=== PATIENT | female | born 1995 | race Caucasian/White ===

== ENCOUNTER 2024-09-09 21:35 | Inpatient (IN) ==
[2024-09-09] MEDS ORDERED: ACETAMINOPHEN 500 MG TAB PO PRN (22:29)
[2024-09-09] MEDS ORDERED: LIDOCAINE 1% LOCAL 20 ML VIAL INFIL PRN (22:29)
[2024-09-09] MEDS ORDERED: CALCIUM CARBONATE 500 MG CHEWABLE TAB PO PRN (22:29)
[2024-09-09 23:02] LABS: Hematocrit (blood only) 36.8 % (37.0-47.0); Hemoglobin 12.4 g/dl (12.0-16.0); Mean Corpuscular Hgb Conc 33.7 g/dL (32.0-36.0); Mean Corpuscular Volume 86.2 fL (80.0-100.0); Mean Platelet Volume 13.6 fL (9.4-12.4); Platelet Count 167 K/uL (130-400); RDW Coefficient of Variation 13.8 % (11.5-14.5); RDW Standard Deviation 43.4 fL (36.4-46.3); Red Blood Count 4.27 M/uL (4.20-5.40); White Blood Count 10.28 K/ul (4.8-10.8)
[2024-09-09] MEDS: LACTATED RINGER'S 1,000 ML IV PRN (23:09)
--- NOTE | 2024-09-09 23:32 | History & Physical Report ---
Date of Service September 09, 2024 History of Present Illness Chief Complaint: brigitte collins Primary Care Provider: NO PCP 29 F P0000 at 39 nweeks with SROM this evening around 8 PM clear fluid with irregular contractions. GBS is negative. course has been uncomplicated. Patient History Social History Smoking Status: Former smoker Tobacco Type: Cigarettes and E-cigarettes / Vaping Second Hand Exposure: No; Do You Dip or Chew Tobacco: No; Tobacco Cessation Education Requested by Patient: No Hx Alcohol Use: No Hx Substance Use: No Preferred Language: Azeri Communication Ability: Effective Commercial Loan Processor Required: No Beliefs That Will Affect Care: None marital status: Single Current Living Situation: Family and Significant Other Current Living Situation Comment: FOB and step children Other Information That Helps Us Care for You: No Feels Safe at Home: Yes Safety Concerns: Feels Safe At This Time Assistive Devices: Contacts and Glasses 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 Physical Exam Constitutional: WD/WN, vitals as above Eyes: PERRL, conjunctivae normal, anicteric sclerae Respiratory: normal respiratory effort, lungs clear to auscultation Cardiovascular: Rate/Rhythm: regular rate and regular rhythm Gastrointestinal (Abdomen): Inspection/Auscultation: abdomen normal to inspection Musculoskeletal: Extremities: extremities normal to inspection Skin: no rashes, warm and dry Neurologic: patellar DTR's 2+ bilat, sensation intact Psychiatric: A+Ox3, euthymic affect Genitourinary: Manual OB Exam: + cervical dilation 4 cm, + cervical effacement 80%, + station -2 and + amniotic fluid clear OB Exam Monitor Tracing: + external FHT monitor used, + external uterine monitor used, + category I and + normal FHT variability Results & Data Vital Signs (Past 12 Hours) Vital Signs Temp Pulse Resp BP Pulse Ox 09/09/24 23:24 82 100 09/09/24 23:19 79 98 09/09/24 22:40 36.6 C 18 09/09/24 22:06 76 126/77
[2024-09-09] MEDS: Patient's ALLERGY Info needs ENTERED STA (23:54)
--- NOTE | 2024-09-09 23:58 | Anesthesiology Consultation ---
Date of Service September 09, 2024 Assessment & Plan (1) Encounter for pre-operative examination: Chart Review Chart Review: Acceptable Risk for Labor Epidural History Height/Weight Height: 5 ft 4 in Weight: 90.718 kg Allergies Allergy/AdvReac Type Severity Reaction Status Date / Time No Known Drug Allergies Allergy None Verified 09/09/24 23:45 Medications Active Medications Generic Name Dose Route Start Last Admin Trade Name Freq PRN Reason Stop Dose Admin Lactated Ringer's 1,000 mls @ 125 mls/hr 09/09/24 22:29 09/09/24 23:09 Lr IV 09/11/24 22:28 999 mls/hr .Q8H PRN Administration L&D Protocol Protocol Past Medical History Medical History (Updated 09/09/24 @ 23:58 by Jacky Louis MD) No pertinent past medical history Past Surgical History Surgical History (Updated 09/09/24 @ 23:58 by Jacky Louis MD) No pertinent past surgical history Social History Smoking Status: Former smoker Do You Dip or Chew Tobacco: No Hx Alcohol Use: No Hx Substance Use: No substance use type: does not use Physical Exam Vital Signs Last Vital Signs Temp 36.6 C 09/09/24 22:40 Pulse 91 H 09/09/24 23:34 Resp 18 09/09/24 22:40 BP 126/77 09/09/24 22:06 Pulse Ox 99 09/09/24 23:34 Testing Laboratory Results 09/09/24 22:33
[2024-09-10] MEDS: fentANYL 2 MCG/ML BUPIVacaine 0.125%-NSS 100ML BAG ONE (00:23)
[2024-09-10] MEDS ORDERED: fentaNYL citrate PF 100 MCG/2 ML VIAL EPI PRN (00:25)
[2024-09-10] MEDS ORDERED: ROPIVACAINE 0.5% PF 5 MG/ML 20 ML VIAL EPI PRN (00:25)
[2024-09-10] MEDS ORDERED: ePHEDrine sulfate 50 MG/ML AMP IV PRN (00:25)
[2024-09-10] MEDS ORDERED: NALOXONE HCL 1 MG in SODIUM CHLORIDE 0.9% 1,000 ML IV PRN (00:25)
[2024-09-10] MEDS ORDERED: BUPIVACAINE 0.25% PF 30 ML VIAL EPI PRN (00:25)
[2024-09-10] MEDS ORDERED: SODIUM CHLORIDE 0.9% PF INJ 10 ML VIAL EPI PRN (00:25)
[2024-09-10] MEDS ORDERED: NALOXONE HCL 0.4 MG/1 ML VIAL/CARP IV PRN (00:25)
[2024-09-10] MEDS ORDERED: LIDOCAINE 2% MPF LOCAL 5 ML VIAL EPI PRN (00:25)
[2024-09-10] MEDS: LIDOCAINE 2%/EPINEPHRINE 1:200,000 20 ML PF ONE (00:26)
[2024-09-10] MEDS: BUPIVACAINE 0.25% PF 30 ML VIAL ONE (00:26)
[2024-09-10] MEDS: SODIUM CHLORIDE 0.9% PF INJ 10 ML VIAL ONE (00:26)
[2024-09-10] MEDS: fentaNYL citrate PF 100 MCG/2 ML VIAL ONE (00:28)
--- OUTSIDE RECORDS SUMMARY | 2024-09-10 04:26 | External Medical Summary | Summary of Care ---
Author Name Unknown Organization [facility] Address [address] [facility] [place] [address] Phone [phone] Care Team Providers Care Stoker Erector And Servicer Name Role Phone Unavailable Primary Care Provider Unavailabl e Encounter Details Date Type Department Care Team (Late st Contact Info) Description 09/06/2024 Telephone Gynecology/Obstetrics [facility] [address] [place] [address] BackerReanna CRNP [address] [place] [address] Allergies No known active allergiesdocumented as of this encounter (statuses as of 09/09/2024) Medications Prena1 1.4 MG Oral Tablet Chewable Take by mouth. Active Breast PumpIndications :Breast feeding status of mother EVA 09/16/24, Z39.1. Double electric pump 1 Each 05/10/2024 Active documented as of this encounter (statuses as of 09/09/2024) Active Problems Problem Noted Date Diagnosed Date High grade squamous intraepi thelial lesion (HGSIL), grade 3 KANU, on biopsy of cervix 04/16/2024 Overview (04/16/2024): Needs LEEP Pap smear of cervix with ASCUS, cannot exclude H GSIL 03/11/2024 Overview (03/11/2024): At [facility] Supervision of normal first 03/01/2024 Ganglion 07/22/2008 Tobacco use disorder Estimated Date of Delivery Comme nts Yes 09/16/2024 Based on Ultraso und documented as of this encounter (statuses as of 09/09/2024) Resolved Problems Problem Noted Date Diagnosed Date Resolved Date Contraception 03/01/2024 documented as of this encounter (statuses as of 09/09/2024) Immunizations Name Administration Dates Next Due HPV Vaccine, 4-Valent 07/25/2007,03/27/2007,01/06 Meningococcal Conjugate Vacc ine (Menactra/Menveo) 01/23/2007 Seasonal Influenza Vac., MDV , IM, 0.5 mL (Fluzone) 03/05/2008 TDAP, Age 7 and older, IM (Adacel) 07/05/2024, Varicella Vaccine (Chicken Pox) 01/31/1995 documented as of this encounter Social History Tobacco Use Types Packs/Day Years Used Date Smoking Tobacco: Former Cigarettes 0.5 1 Smokeless Tobacco: Never Comments:vape Alcohol Use Standard Drinks/Week Comments Not Currently 0 (1 standard drink = 0.6 oz pur e alcohol) Hunger Vital Sign Answer Date Recorded Within the past 12 months, y ou worried that your food would run out before you got the money to buy more. Never true 04/26/20 24 Within the past 12 months, t he food you bought just didn't last and you didn't have money to get more. Never true 04/26/2024 [place] Depression Scale Answer Date Recorded [place] Depression Scale Total 0 07/26/2024 The thought of harming myself has occurred to me . Never 07/26/2024 Childcare Answer Date Recorded Do you feel overwhelmed with taking care of a child, family member or friend? No 04/26/2024 Does your family need help f inding childcare? (Household - for ages 0-17 years) Not on file 04/26/2024 Clothing Answer Date Recorded Have you been unable to get clothing when it was really needed? No 04/26/2024 Is your family able to get c lothes or diapers when needed? (Household - for ages 0-17 years) Not on file 04/26/2024 Personal Safety Answer Date Recorded Do you feel unsafe or have concerns for your saf ety? No 04/26/2024 Do you have concerns for you r family's safety? (Household - for ages 0-17 years) Not on file 04/26/2024 Utilities Answer Date Recorded Do you have trouble paying y our heating, water, or electric bill? No 04/26/2024 Is your family able to pay t he heat, water, or electric bill? (Household - for ages 0-17 years) Not on file 04/26/2024 Does your family have access to good internet? (Household - for ages 0-17 years) Not on file 04/26/2024 Employment Status Answer Date Recorded Are you unemployed or without regular income? No 04/26/2024 Does the household have a re gular source of income? (Household - for ages 0-17 years) Not on file 04/26/2024 Social Connections Answer Date Recorded How often do you feel lonely or isolated from th ose around you? Never 04/26/2024 Financial Resource Strain Answer Date R ecorded Do you have any trouble payi ng for your medications, or do you think you might in the future? No 04/26/2024 Does your family have troubl e paying for medicine? (Household - for ages 0-17 years) Not on file 04/26/2024 Transportation Needs Answer Date Record ed Do you have trouble getting a ride to medical visits or work? (Adult - for ages 18 years and over) Not on file 04/26/2024 Does your family have a hard time getting a ride to doctors visits? (Household - for ages 0-17 years) Not on file 04/26/2024 Has lack of transportation k ept you from medical appointments, meetings, work, or from getting things needed for daily living? Check all that apply. No 04/26/2024 Do you (or your family) have trouble finding or paying for a ride (transportation)? (Household - for ages 0-17 years) Not on file 04/26/2024 Housing Stability Answer Date Recorded Do you currently live in a s helter or have no steady place to sleep at night? No 04/26/2024 Do you think you are at risk of becoming homeless? (Adult - for ages 18 years and over) Not on file 04/26/2024 Does your family worry about paying for your home or becoming homeless? (Household - for ages 0-17 years) Not on file 1 06/27/2023 Are you homeless or worried that you might be in the future? No 04/26/2024 Are you (or your family) ashley eless or worried that you might be in the future? (Household - for ages 0-17 years) Not on file Food Insecurity Answer Date Recorded Do you need food for this week? No 04/26/2024 Are you able to get enough f ood for your family? (Household - for ages 0-17 years) Not on file 04/26/2024 Does your family need food t his week? (Household - for ages 0-17 years) Not on file 04/26/2024 Do you always have enough fo od for your family? (Household - for ages 0-17 years) Not on file 04/26/2024 Food Insecurity Answer Date Recorded Within the past 12 months, y ou worried that your food would run out before you got the money to buy more. Never true 04/26/20 24 Within the past 12 months, t he food you bought just didn't last and you didn't have money to get more. Never true 04/26/2024 Do you need food for this week? No 04/26/2024 Estimated Date of Delivery Comme nts Yes 09/16/2024 Based on Ultraso und Sex and Gender Information Value Date Recorded Sex Assigned at Female 02/08/2024 9:18 AM EDT Legal Sex Female 6:06 AM EST Gender Identity Female 02/08/2024 9:18 AM EDT Sexual Orientation Straight 02/08/2024 9: 18 AM EDT documented as of this encounter Miscellaneous Notes * Telephone Encounter - Olga Gibbs OSA - 09/09/2024 7:42 AM EDT Patient is scheduled for September 13 * Telephone Encounter - Sandy Ramos OSA - 09/06/2024 3:47 PM EDT Please assist with rescheduling 1 wk geovani. Thank you! documented in this encounter Plan of Treatment Upcoming Encounters Date Type Department Care Team (Late st Contact Info) Description 09/13/2024 8:15 AM EDT Office Visit Gynecology/Obstetrics [facility] [address] [place] [address] Reanna Osborne CRNP [address] [place] [address] 11/04/2024 12:30 PM EDT Office Visit Gynecology/Obstetrics [facility] [address] [place] [address] Octavio Jasso MD [address] [place] [address] Health Maintenance Due Date Last Done Comments Depression Screening 2005 Lipid Panel 2013 COVID-19 Vaccine ( season) 2024 Pap Smear 03/01/2027 03/01/2024 Cervical Cancer Screening 03/01/2029 HPV/Co-Test 03/01/2029 03/01/2024 DTap/Tdap Vaccines (10 - Td or Tdap) 07/05/2034 07/05/2024, 12/26/2009, 08/20/2004, Additional history exists Hepatitis B Vaccine Completed 10/18/1994, 1993, 1993 MENINGOCOCCAL (MENACTRA/MENVEO) Aged Out 01/23/2007 No longer eligible based on patient's age to complete this topic HPV (Gardasil) Vaccine Completed 8, 03/27/2007, 01/23/2007 Influenza Vaccine (FLU shot) Completed 01/23/2024, 03/05/2008 Meningitis B Vaccine (Bexsero/Trumemba) Aged Out No longer eligible based on patient's age to complete this topic Pneumococcal Vaccine: Pediatrics (0 to 5 Years) and At-Risk Patients (6 to 18 Years and 19+ Years) Aged Out No longer eligib le based on patient's age to complete this topic documented as of this encounter Medical Devices Not on filedocumented as of this encounter
--- OUTSIDE RECORDS SUMMARY | 2024-09-10 04:26 | External Medical Summary | Summary of Care ---
Author Name Unknown Organization [facility] Address [address] [facility] [place] [address] Phone [phone] Care Team Providers Care Color Artist Name Role Phone Unavailable Primary Care Provider Unavailabl e Reason for Visit * Reason Comments Return Visit Encounter Details Date Type Department Care Team (Latest Contact Info) Description 08/30/2024 10:15 AM EDT Office Visit Gynecology/Obstetri nasra Ding Mahajan [address] [place] [address] Debby Gant CRNP [address] [place] [address] Encounter for supervision of normal first in third trimester*; High grade squamous intraepithelial lesion (HGSIL), grade 3 KANU, on biopsy of cervix Allergies No known active allergiesdocumented as of this encounter (statuses as of 08/30/2024) Medications Prena1 1.4 MG Oral Tablet Chewable Take by mouth. Active Breast PumpIndications :Breast feeding status of mother EVA 09/16/24, Z39.1. Double electric pump 1 Each 05/10/2024 Active documented as of this encounter (statuses as of 08/30/2024) Active Problems Problem Noted Date Diagnosed Date [...] as of this encounter (statuses as of 08/30/2024) Resolved Problems Problem Noted Date Diagnosed Date Resolved Date Contraception 03/01/2024 documented as of this encounter (statuses as of 08/30/2024) Immunizations Name Administration Dates Next Due HPV [...] money to get more. Never true 04/26/2024 [place] Depression Scale Answer Date Recorded [place] Depression Scale Total 0 07/26/2024 The thought [...] AM EDT documented as of this encounter Last Filed Vital Signs Vital Sign Reading Time Taken Comments Blood Pressure 118/74 08/30/2024 10:04 AM EDT Pulse - - Temperature - - Respiratory Rate - - Oxygen Saturation - - Inhaled Oxygen Concentration - - Weight 90.6 kg (199 lb 12.8 oz) 025 10:04 AM EDT Height - - Body Mass Index 35.11 03/01/2024 9:22 AM EDT documented in this encounter Progress Notes * Debby Gant CRNP - 08/30/2024 10:18 AM EDT 37w4d No concerns. Occasional contractions, not progressing toward active labor. Good FM. No bleeding or LOF. BRITTNEE Spear * Melinda Tan CMA - 08/30/2024 10:04 AM EDT 37w4d Denies any concerns documented in this encounter Plan of Treatment Upcoming Encounters Date Type Department Care Team (Late st Contact Info) Description 09/06/2024 11:45 AM EDT Office Visit Gynecology/Obstetrics [facility] [address] [place] [address] Reanna Osborne CRNP [address] [place] [address] 11/04/2024 12:30 PM EDT Office Visit Gynecology/Obstetrics [facility] [address] [place] [address] Octavio Jasso MD [address] [place] [address] Health Maintenance Due Date Last Done Comments [...] complete this topic HPV (Gardasil) Vaccine Completed , 03/27/2007, 01/23/2007 Influenza Vaccine (FLU shot) Completed [...] Not on filedocumented as of this encounter Visit Diagnoses Diagnosis Encounter for supervision of normal first in third trimester- Primary Supervision of normal first High grade squamous intraepithelial lesion (HGSIL), grade 3 KANU, on biopsy of cervix documented in this encounter
--- OUTSIDE RECORDS SUMMARY | 2024-09-10 04:26 | External Medical Summary | Summary of Care ---
Author Name Unknown Organization [facility] Address [address] [facility] [place] [address] Phone [phone] Care Team Providers Care Fret Saw Operator Name Role Phone Unavailable Primary Care Provider Unavailabl e Reason for Visit * Reason Comments Return Visit Encounter Details Date Type Department Care Team (Late st Contact Info) Description 09/06/2024 11:45 AM EDT Office Visit Gynecology/Obstetri Timur Mahajan [address] [place] [address] BackReanna corrales CRNP [address] [place] [address] Encounter for supervision of normal first in third trimester*; High grade squamous intraepithelial lesion (HGSIL), grade 3 KANU, on biopsy of cervix Allergies No known active allergiesdocumented as of this encounter (statuses as of 09/06/2024) Medications Prena1 1.4 MG Oral Tablet Chewable Take by mouth. Active Breast PumpIndications :Breast feeding status of mother EVA 09/16/24, Z39.1. Double electric pump 1 Each 05/10/2024 Active documented as of this encounter (statuses as of 09/06/2024) Active Problems Problem Noted Date Diagnosed Date [...] as of this encounter (statuses as of 09/06/2024) Resolved Problems Problem Noted Date Diagnosed Date Resolved Date Contraception 03/01/2024 documented as of this encounter (statuses as of 09/06/2024) Immunizations Name Administration Dates Next Due HPV [...] money to get more. Never true 04/26/2024 [place] Depression Scale Answer Date Recorded [place] Depression Scale Total 0 07/26/2024 The thought [...] Sign Reading Time Taken Comments Blood Pressure 116/68 09/06/2024 11:42 AM EDT Pulse - - Temperature - - Respiratory Rate - - Oxygen Saturation - - Inhaled Oxygen Concentration - - Weight 90.7 kg (200 lb) 09/06/2024 11:42 AM EDT Height 160.7 cm (5' 3.25") 09/06/2024 11:42 AM E DT Body Mass Index 35.15 09/06/2024 11:42 AM EDT documented in this encounter Progress Notes * Reanna Osborne CRNP - 09/06/2024 11:46 AM EDT 38w4d No regular ctx, LOF/bleeding. Some irregular cramping/back pain. Reviewed labor signs/FKC and when to call. Pt agreeable to scheduling IOL post-dates. Discussed induction process. 1 week return BRITTNEE Gutierrez * Genesis Kong LPN - 09/06/2024 11:42 AM EDT 38w4d iol documented in this encounter Plan of Treatment Upcoming Encounters Date Type Department Care Team (Late st Contact Info) Description 09/20/2024 10:30 AM EDT Office Visit Gynecology/Obstetrics [facility] [address] [place] [address] Debby Gant CRNP [address] [place] [address] 11/04/2024 12:30 PM EDT Office Visit Gynecology/Obstetrics [facility] [address] [place] [address] Octavio Jasso MD [address] [place] [address] Health Maintenance Due Date Last Done Comments [...]
--- OUTSIDE RECORDS SUMMARY | 2024-09-10 04:27 | External Medical Summary | Summary of Care ---
Author Name Unknown Organization [facility] Address [address] [facility] [place] [address] Phone [phone] Care Team Providers Care Touch Up Painter Name Role Phone Unavailable Primary Care Provider Unavailabl e Reason for Visit * Reason Onset Date Comments Appointment 08/23/2024 Encounter Details Date Type Department Care Team (Late st Contact Info) Description 08/23/2024 Telephone Gynecology/Obstetrics [facility] [address] [place] [address] Reanna Osborne CRNP [address] [place] [address] Appointment Allergies No known active allergiesdocumented as of this encounter (statuses as of 08/28/2024) Medications Prena1 1.4 MG Oral Tablet Chewable Take by mouth. Active Breast PumpIndications :Breast feeding status of mother EVA 09/16/24, Z39.1. Double electric pump 1 Each 05/10/2024 Active documented as of this encounter (statuses as of 08/28/2024) Active Problems Problem Noted Date Diagnosed Date [...] as of this encounter (statuses as of 08/28/2024) Resolved Problems Problem Noted Date Diagnosed Date Resolved Date Contraception 03/01/2024 documented as of this encounter (statuses as of 08/28/2024) Immunizations Name Administration Dates Next Due HPV [...] money to get more. Never true 04/26/2024 [place] Depression Scale Answer Date Recorded [place] Depression Scale Total 0 07/26/2024 The thought [...] No 04/26/2024 Does the household have a [facility] source [facility] income? (Household - for ages [...] encounter Miscellaneous Notes * Telephone Encounter - Reanna Osborne CRNP - 08/23/2024 7:41 AM EDT Pt needs to schedule a LEEP after 6 wk PP visit. Estimated Date of Delivery: 09/16/24 Please assist, thanks! BRITTNEE Gutierrez documented in this encounter Plan of Treatment Upcoming Encounters Date Type Department Care Team (Late st Contact Info) Description 09/02/2024 8:45 AM EDT Office Visit Gynecology/Obstetrics Timur Mahajan [address] [place] [address] Octavio Jasso MD [address] [place] [address] 11/04/2024 12:30 PM EDT Office Visit Gynecology/Obstetrics Timur Mahajan [address] [place] [address] Octavio Jasso MD [address] [place] [address] Health Maintenance Due Date Last Done Comments [...]
--- OUTSIDE RECORDS SUMMARY | 2024-09-10 04:27 | External Medical Summary | Summary of Care ---
Author Name Unknown Organization [facility] Address [address] [facility] [place] [address] Phone [phone] Care Team Providers Care 1St Grade Teacher Name Role Phone Unavailable Primary Care Provider Unavailabl e Reason for Visit * Reason Comments Return Visit Encounter Details Date Type Department Care Team (Late st Contact Info) Description 08/16/2024 1:45 PM EDT Office Visit Gynecology/Obstetri Timur Mahajan [address] [place] [address] BackReanan corrales CRNP [address] [place] [address] Encounter for supervision of normal first in third trimester*; High grade squamous intraepithelial lesion (HGSIL), grade 3 KANU, on biopsy of cervix Allergies No known active allergiesdocumented as of this encounter (statuses as of 08/16/2024) Medications Prena1 1.4 MG Oral Tablet Chewable Take by mouth. Active Breast PumpIndications :Breast feeding status of mother EVA 09/16/24, Z39.1. Double electric pump 1 Each 05/10/2024 Active documented as of this encounter (statuses as of 08/16/2024) Active Problems Problem Noted Date Diagnosed Date [...] as of this encounter (statuses as of 08/16/2024) Resolved Problems Problem Noted Date Diagnosed Date Resolved Date Contraception 03/01/2024 documented as of this encounter (statuses as of 08/16/2024) Immunizations Name Administration Dates Next Due HPV [...] money to get more. Never true 04/26/2024 [place] Depression Scale Answer Date Recorded [place] Depression Scale Total 0 07/26/2024 The thought [...] Sign Reading Time Taken Comments Blood Pressure 102/60 08/16/2024 1:41 PM EDT Pulse - - Temperature - - Respiratory Rate - - Oxygen Saturation - - Inhaled Oxygen Concentration - - Weight 89.8 kg (198 lb) 08/16/2024 1:41 PM EDT Height - - Body Mass Index 34.8 03/01/2024 9:22 AM EDT documented in this encounter Progress Notes * Reanna Osborne CRNP - 08/16/2024 1:50 PM EDT 35w4d Baby moving well. No regular ctx or LOF/bleeding. Reviewed [facility]KC and labor signs, when to call. Discussed GBS swab to be completed at next visit. 1 week return BRITTNEE Gutierrez * Monse Scott LPN - 08/16/2024 1:41 PM EDT 35w4d Denies vaginal bleeding/rom + movement No new concerns documented in this encounter Plan of Treatment Upcoming Encounters Date Type Department Care Team (Late st Contact Info) Description 08/23/2024 7:30 AM EDT Office Visit Gynecology/Obstetrics [facility] [address] [place] [address] Reanna Osborne CRNP [address] [place] [address] Health Maintenance Due Date Last Done Comments [...]
--- OUTSIDE RECORDS SUMMARY | 2024-09-10 04:27 | External Medical Summary ---
Author Name Unknown Address Unknown Organization [facility] [place] [address] [place] [address] Laboratory Report Ordering Provider Test Date Status LIZETH KAPLAN 08/23/2024 07:40:58 Final Observation Date Value Abnormality Reference (Units ) Status Streptococcus agalactiae DNA [Presence] in Specimen by MARK with probe detection 08/23/2024 07:40:58 Negative Negative Final No Group B Streptococcus det ected by culture-enhanced PCR (amplified probe). GBS GBSCT - [facility] 08/23/2024 07:40:58 0.0 Final GBS SPCCT - [facility] 08/23/2024 07:40:58 31.6 Final Performing Location [facility] [place] - [facility] [place] [id number]
--- OUTSIDE RECORDS SUMMARY | 2024-09-10 04:27 | External Medical Summary | Summary of Care ---
Author Name Unknown Organization [facility] Address [address] [facility] [place] [address] Phone [phone] Care Team Providers Care Export Agent Name Role Phone Unavailable Primary Care Provider Unavailabl e Reason for Visit * Reason Comments Return Visit Encounter Details Date Type Department Care Team (Late st Contact Info) Description 08/23/2024 7:30 AM EDT Office Visit Gynecology/Obstetri Timur Mahajan [address] [place] [address] BackReanna corrales CRNP [address] [place] [address] Encounter for supervision of normal first in third trimester*; High grade squamous intraepithelial lesion (HGSIL), grade 3 KANU, on biopsy of cervix Allergies No known active allergiesdocumented as of this encounter (statuses as of 08/23/2024) Medications Prena1 1.4 MG Oral Tablet Chewable Take by mouth. Active Breast PumpIndications :Breast feeding status of mother EVA 09/16/24, Z39.1. Double electric pump 1 Each 05/10/2024 Active documented as of this encounter (statuses as of 08/23/2024) Active Problems Problem Noted Date Diagnosed Date [...] as of this encounter (statuses as of 08/23/2024) Resolved Problems Problem Noted Date Diagnosed Date Resolved Date Contraception 03/01/2024 documented as of this encounter (statuses as of 08/23/2024) Immunizations Name Administration Dates Next Due HPV [...] money to get more. Never true 04/26/2024 [place] Depression Scale Answer Date Recorded [place] Depression Scale Total 0 07/26/2024 The thought [...] Sign Reading Time Taken Comments Blood Pressure 114/70 08/23/2024 7:25 AM EDT Pulse - - Temperature - - Respiratory Rate - - Oxygen Saturation - - Inhaled Oxygen Concentration - - Weight 90.6 kg (199 lb 12.8 oz) 08/23/2024 7:25 AM EDT Height - - Body Mass Index 35.11 03/01/2024 9:22 AM EDT documented in this encounter Progress Notes * Reanna Osborne CRNP - 08/23/2024 7:42 AM EDT 36w4d Feels well, good movement and no signs of labor. Message sent to scheduling to set up LEEP for >6 wks PP. GBS swab today. Return in 1 week. Card Cutter Documentation Provider requested wireless store manager. Name of wireless store manager: BRITTNEE Rushing * Melinda Tan CMA - 08/23/2024 7:25 AM EDT 36w4 Denies any concerns GBS swab today documented in this encounter Plan of Treatment Upcoming Encounters Date Type Department Care Team (Late st Contact Info) Description 09/02/2024 8:45 AM EDT Office Visit Gynecology/Obstetrics [facility] [address] [place] [address] Octavio Jasso MD [address] [place] [address] Pending Results Name Type Priority Associated Diagnoses Date /Time GROUP B STREP CULTURE/PCR Lab Routine Encounter for supervision of normal first in third trimester 08/23/2024 7:40 AM EDT Scheduled Orders Name Type Priority Associated Diagnoses Orde r Schedule GROUP B STREP CULTURE/PCR Lab Routine Encounter for supervision of normal first in third trimester Expected: 08/23/2024, Expires: 08/23/2025 Health Maintenance Due Date Last Done Comments [...]
--- OUTSIDE RECORDS SUMMARY | 2024-09-10 04:27 | External Medical Summary | Summary of Care ---
Author Name Unknown Organization [facility] Address [address] [facility] [place] [address] Phone [phone] Care Team Providers Care Molding Line Assistant Name Role Phone Unavailable Primary Care Provider Unavailabl e Reason for Visit * Reason Comments Return Visit Encounter Details Date Type Department Care Team (Late st Contact Info) Description 07/05/2024 8:30 AM EST Office Visit Gynecology[facility]stetri [facility] [address] [place] [address] Reanna Osborne CRNP [address] [place] [address] Encounter for supervision of normal first in third trimester*; High grade squamous intraepithelial lesion (HGSIL), grade 3 KANU, on biopsy of cervix; Need for alihyglvak-npooluc-xuqe ussis (Tdap) vaccine Allergies No known active allergiesdocumented as of this encounter (statuses as of 07/05/2024) Medications Prena1 1.4 MG Oral Tablet Chewable Take by mouth. Active Breast PumpIndications :Breast feeding status of mother EVA 09/16/24, Z39.1. Double electric pump 1 Each 05/10/2024 Active documented as of this encounter (statuses as of 07/05/2024) Active Problems Problem Noted Date Diagnosed Date [...] as of this encounter (statuses as of 07/05/2024) Resolved Problems Problem Noted Date Diagnosed Date Resolved Date Contraception 03/01/2024 documented as of this encounter (statuses as of 07/05/2024) Immunizations Name Administration Dates Next Due DTaP HIB - Dipth/Tet/Acell Pert/HIB 08/20/2004,0 10/18/1994 DTaP Dipth/Tet/Acell Pertussis (Infanrix), Peds 07/23/1997,01/05/1994,1993,09/09 HPV Vaccine, 4-Valent 07/25/2007,03/27/2007,01/06 Hepatitis B, 0-19 yrs 10/18/1994,1993,04/0 10/1993 IPV - Polio Virus Vaccine (Inact) 1997,10/18/1994,1993,09/09 MMR - Measles/Mumps/Rubella Vaccine 07/23/1997,0 07/25/1994 Meningococcal Conjugate Vacc ine (Menactra/Menveo) 01/23/2007 PPD 07/25/1994 Seasonal Influenza Vac., MDV , IM, 0.5 mL (Fluzone) 03/05/2008 TD, Preservative Free 08/20/2004 TDAP, Age 7 and older, IM (Adacel) 07/05/2024, Varicella Vaccine (Chicken Pox) 08/20/2004,01/31 documented as of this encounter Social History [...] money to get more. Never true 04/26/2024 [place] Depression Scale Answer Date Recorded [place] Depression Scale Total 0 03/01/2024 The thought of harming myself has occurred to me . Never 03/01/2024 Childcare Answer Date Recorded Do you feel [...] Sign Reading Time Taken Comments Blood Pressure 100/60 07/05/2024 8:32 AM EST Pulse - - Temperature - - Respiratory Rate - - Oxygen Saturation - - Inhaled Oxygen Concentration - - Weight 88 kg (194 lb) 07/05/2024 8:32 AM EST Height - - Body Mass Index 34.09 03/01/2024 9:22 AM EDT documented in this encounter Progress Notes * Reanna Osborne CRNP - 07/05/2024 8:37 AM EST 29w4d Good movement. Discussed [facility] and advised to call with <10 movements in 2 hrs or other concerns. No leaking, bleeding, ctx. Encouraged to look into childbirth classes and pediatricians. Tdap and labs today. Return in 2 weeks. BRITTNEE Gutierrez * Monse Scott LPN - 07/05/2024 8:31 AM EST 29w4d Denies vaginal bleeding/rom + movement Gtt today Tdap today documented in this encounter Nursing Notes * Monse Scott LPN - 07/05/2024 8:46 AM EST Patient here for tdap injection. Patient doing well no complaints. Injection given IM as ordered. Patient tolerated well. Patient to follow up as directed. Patient instructed to call if any complications. Patient verbalized understanding of instructions given. Injection site: Right Deltoid Medication Source: Dispensed stock medication documented in this encounter Plan of Treatment Upcoming Encounters Date Type Department Care Team (Late st Contact Info) Description 07/26/2024 11:45 AM EDT Office Visit Gynecology/Obstetrics Timur Mahajan [address] [place] [address] Backer, BRITTNEE Lofton [address] [place] [address] Health Maintenance Due Date Last Done Comments Depression Screening 2005 COVID-19 Vaccine ( season) 2024 Pap Smear [...] grade 3 KANU, on biopsy of cervix Need for twubwokygb-pridwbn-jqotruiyt (Tdap) vaccine Need for prophylactic vaccination with combined advvubkogx-gvdcapz-xysgdlkzn (DTP) vaccine documented in this encounter
--- OUTSIDE RECORDS SUMMARY | 2024-09-10 04:27 | External Medical Summary | Summary of Care ---
Author Name Unknown Organization [facility] Address [address] [facility] [place] [address] Phone [phone] Care Team Providers Care Central Station Operator Name Role Phone Unavailable Primary Care Provider Unavailabl e Reason for Visit * Reason Comments Return Visit Encounter Details Date Type Department Care Team (Late st Contact Info) Description 07/26/2024 11:45 AM EDT Office Visit Gynecology/Obstetri Timur Mahajan [address] [place] [address] BackReanna corrales CRNP [address] [place] [address] Encounter for supervision of normal first in third trimester*; High grade squamous intraepithelial lesion (HGSIL), grade 3 KANU, on biopsy of cervix Allergies No known active allergiesdocumented as of this encounter (statuses as of 07/26/2024) Medications Prena1 1.4 MG Oral Tablet Chewable Take by mouth. Active Breast PumpIndications :Breast feeding status of mother EVA 09/16/24, Z39.1. Double electric pump 1 Each 05/10/2024 Active documented as of this encounter (statuses as of 07/26/2024) Active Problems Problem Noted Date Diagnosed Date [...] as of this encounter (statuses as of 07/26/2024) Resolved Problems Problem Noted Date Diagnosed Date Resolved Date Contraception 03/01/2024 documented as of this encounter (statuses as of 07/26/2024) Immunizations Name Administration Dates Next Due HPV [...] money to get more. Never true 04/26/2024 [place] Depression Scale Answer Date Recorded [place] Depression Scale Total 0 07/26/2024 The thought [...] Reading Time Taken Comments Blood Pressure 102/60 07/26/2024 11:30 AM EDT Pulse - - Temperature - - Respiratory Rate - - Oxygen Saturation - - Inhaled Oxygen Concentration - - Weight 89.4 kg (197 lb) 07/26/2024 11:30 AM EDT Height - - Body Mass Index 34.62 03/01/2024 9:22 AM EDT documented in this encounter Progress Notes * Reanna Osborne CRNP - 07/26/2024 11:39 AM EDT 32w4d Doing well. No leaking, bleeding, regular ctx. Has not considered contraceptive options yet. Will bring [place] paperwork next visit. 2 week return BRITTNEE Gutierrez * Monse Scott LPN - 07/26/2024 11:29 AM EDT 32w4d Denies vaginal bleeding/rom + movement documented in this encounter Plan of Treatment Upcoming Encounters Date Type Department Care Team (Late st Contact Info) Description 08/16/2024 1:45 PM EDT [facility] [address] [place] [address] Reanna Osborne CRNP [address] [place] [address] Health Maintenance Due Date Last Done Comments [...]
--- OUTSIDE RECORDS SUMMARY | 2024-09-10 04:27 | External Medical Summary | Summary of Care ---
Author Name Unknown Organization [facility] Address [address] [facility] [place] [address] Phone [phone] Care Team Providers Care Quality Compliance Coordinator Name Role Phone Unavailable Primary Care Provider Unavailabl e Reason for Visit * Reason Comments Return Visit Encounter Details Date Type Department Care Team (Late st Contact Info) Description 07/05/2024 8:30 AM EST Office Visit [facility]etri [facility] [address] [place] [address] Reanna Osborne CRNP [address] [place] [address] Encounter for supervision of normal first in third trimester*; High grade squamous intraepithelial lesion (HGSIL), grade 3 KANU, on biopsy of cervix; Need for rbuoigjjyc-zdsezya-afne ussis (Tdap) vaccine Allergies No known active [...] money to get more. Never true 04/26/2024 [place] Depression Scale Answer Date Recorded [place] Depression Scale Total 0 03/01/2024 The thought [...] Timur Mahajan [address] [place] [address] Backer, BRITTNEE Lofton [address] [place] [address] Health Maintenance Due Date Last Done Comments [...] KANU, on biopsy of cervix Need for izkfuvyidv-ayuibhe-rwgiblofj (Tdap) vaccine Need for prophylactic vaccination with combined wbjoxmcvjk-pyulzjr-ppsquhdva (DTP) vaccine documented in this encounter
--- OUTSIDE RECORDS SUMMARY | 2024-09-10 04:27 | External Medical Summary | Summary of Care ---
Author Name Unknown Organization [facility] Address [address] [facility] [place] [address] Phone [phone] Care Team Providers Care Extrusion Press Supervisor Name Role Phone Unavailable Primary Care Provider Unavailabl e Reason for Visit * Reason Comments Outpatient Testing Encounter Details Date Type Department Care Team (Late st Contact Info) Description 07/05/2024 8:20 AM EST Laboratory Laboratory, [facility] [address] [place] [phone] [facility] [address] [place] [address] Encounter for supervision of normal first in second trimester Allergies No known active allergiesdocumented as of [...] 07/05/2024) Immunizations Name Administration Dates Next Due HPV [...] money to get more. Never true 04/26/2024 [place] Depression Scale Answer Date Recorded [place] Depression Scale Total 0 03/01/2024 The thought [...] 04/26/2024 Does the household have a re lar source of income? (Household - for ages [...] AM EDT documented as of this encounter Plan of Treatment Upcoming Encounters Date Type Department Care Team (Late st Contact Info) Description 07/26/2024 11:45 AM EDT Office Visit Gynecology/Obstetrics Timur Mahajan [address] [place] [address] Reanna Osborne CRNP [address] [place] [address] Pending Results Name Type Priority Associated Diagnoses Date /Time SYPHILIS ANTIBODY SCREEN WITH REFLEX TO RPR Lab Routine Encounter for supervision of normal first in second trimester 07/05/2024 9:28 AM EST CBC WITH WBC DIFFERENTIAL AND ANEMIA REFLEX WORKUP Lab Routine Encounter for supervision of normal first in second trimester 07/05/2024 9:28 AM EST SYPHILIS ANTIBODY SCREEN Lab Routine Encounter for supervision of normal first in second trimester 07/05/2024 9:28 AM EST ANEMIA REFLEX CHEMISTRY HOLD Lab Routine Encounter for supervision of normal first in second trimester 07/05/2024 9:28 AM EST Health Maintenance Due Date Last Done Comments [...] Not on filedocumented as of this encounter Procedures Procedure Name Priority Date/Time Associated Diagnosis Comments ANEMIA CBC Routine 07/05/2024 9:28 AM EST Encounter for supervision of normal first in second trimester DIFFERENTIAL, AUTOMATED Routine 07/05/2024 9:28 AM EST Encounter for supervision of normal first in second trimester 50-G GESTATIONAL GLUCOSE, 1 HOUR Routine 07/05/2024 9:28 AM EST Encounter for supervision of normal first in second trimester documented in this encounter Results * (ABNORMAL) DIFFERENTIAL, AUTOMATED (07/05/2024 9:28 AM EST) WBC 9.49 4.00 - 10.80 K/uL 07/05/2024 10:16 AM EST [facility] [place] Neutrophils % 80.2(H) 40.0 - 75.0 % 07/05/2024 10:16 AM EST [facility] [place] [facility] Lymphocytes % 14.0(L) 18.0 - 42.0 % 07/05/2024 10:16 AM EST [facility] [place] Monocytes % 5.1 1.0 - 11.0 % 07/05/2024 10:16 AM EST [facility] [place] [facility] Eosinophils % 0.6 0.0 - 6.0 % 07/05/2024 10:16 AM EST [facility] [place] [facility] Basophils % 0.1 0.0 - 2.0 % 07/05/2024 10:16 AM EST [facility] [place] [facility] Absolute Neutrophils 7.61 1.80 - 7.70 K/uL 07/05/2024 10:16 AM EST [facility] [place] [facility] Absolute Lymphocytes 1.33 1.00 - 4.80 K/ul 07/05/2024 10:16 AM EST [facility] [place] Absolute Monocytes 0.48 0.00 - 1.10 K/uL 07/05/2024 10:16 AM EST [facility] [place] [facility] Absolute Eosinophils 0.06 0.00 - 0.70 K/uL 07/05/2024 10:16 AM EST [facility] [place] [facility] Absolute Basophils 0.01 0.00 - 0.20 K/uL 07/05/2024 10:16 AM EST [facility] [place] [facility] Blood Venous blood specimen / Unknown Venipuncture / Unknown 07/05/2024 9:28 AM EST 07/05/2024 9:29 AM EST us Debby Gant TRAFFIC SIGNAL MECHANIC LAB BLOOD ORDERABLES Final Re sult [facility] [place] [address] * ANEMIA CBC (07/05/2024 9:28 AM EST) WBC 9.49 4.00 - 10.80 K/uL 07/05/2024 10:16 AM EST LAB[facility]ORY [facility] RBC 4.02 3.85 - 5.15 M/uL 07/05/2024 10:16 AM EST [facility]10 HGB 12.2 12.0 - 15.3 g/dL 07/05/2024 10:16 AM EST [facility] Comment: Anemia reflex testing triggers on a HGB < 12.0 for Females and HGB < 13.0 for Males in accordance with the WHO Anemia Guidelines Anemia reflex testing triggers on a HGB < 12.0 for Females and HGB < 13.0 for Males in accordance with the WHO Anemia Guidelines HCT 37.1 36.0 - 45.2 % 07/05/2024 10:16 AM EST [facility] MCV 92.3 81.5 - 97.5 fL 07/05/2024 10:16 AM EST [facility]10 MCH 30.3 27.0 - 34.0 pg 07/05/2024 10:16 AM EST [facility] MCHC 32.9 32.0 - 36.0 g/dL 07/05/2024 10:16 AM EST [facility] RDW 13.5 11.5 - 15.5 % 07/05/2024 10:16 AM EST [facility] PLT 176 140 - 400 K/uL 07/05/2024 10:16 AM EST [facility]10 MPV 12.9 6.6 - 11.1 fL 07/05/2024 10:16 AM EST [facility] Blood Venous blood specimen / Unknown Venipuncture / Unknown 07/05/2024 9:28 AM EST 07/05/2024 9:29 AM EST us Debby BEAULIEU LAB BLOOD ORDERABLES Final Re sult [facility] [place] [address] * 50-G GESTATIONAL GLUCOSE, 1 HOUR (07/05/2024 9:28 AM EST) 50-g Gestational Glucose, 1 Hour 106 70 - 129 mg/dL 07/05/2024 10:32 AM EST [facility] Blood Venous blood specimen / Unknown Venipuncture / Unknown 07/05/2024 9:28 AM EST 07/05/2024 9:29 AM EST us Debby BEAULIEU LAB BLOOD ORDERABLES Final Re sult [facility] [place] [address] documented in this encounter Visit Diagnoses Diagnosis Encounter for supervision of normal first in second trimester Supervision of normal first documented in this encounter
--- OUTSIDE RECORDS SUMMARY | 2024-09-10 04:28 | External Medical Summary ---
Author Name Unknown Address Unknown Organization [id number]:[facility]ATORY [facility] [address] [place] [address] Laboratory Report Ordering Provider Test Date Status ALEXANDRA NEFF 07/05/2024 09:28:59 Final Observation Date Value Abnormality Reference (Units ) Status Glucose [Moles/volume] in Serum or Plasma --1 hour post 50 g glucose PO 07/05/2024 09:28:59 106 70-129 (mg/dL) Final Performing Location LAB[facility]ATORY [facility] [address] - [address] [place] [address]
--- OUTSIDE RECORDS SUMMARY | 2024-09-10 04:28 | External Medical Summary | Summary of Care ---
Author Name Unknown Organization [facility] Address [address] [place] [address] Phone [phone] Care Team Providers Care Mattress Stuffer Name Role Phone Unavailable Primary Care Provider Unavailabl e Reason for Visit * Reason Onset Date Comments Test Results 04/16/2024 Encounter Details Date Type Department Care Team (Late st Contact Info) Description 04/16/2024 Telephone Gynecology/Obstetrics [facility] [address] [place] [address] Reanna Osborne CRNP [address] [place] [address] Test Results Allergies No known active allergiesdocumented as of this encounter (statuses as of 04/16/2024) Medications Prena1 1.4 MG Oral Tablet Chewable Take by mouth. Active documented as of this encounter (statuses as of 04/16/2024) Active Problems Problem Noted Date Diagnosed Date [...] as of this encounter (statuses as of 04/16/2024) Resolved Problems Problem Noted Date Diagnosed Date Resolved Date Contraception 03/01/2024 documented as of this encounter (statuses as of 04/16/2024) Immunizations Name Administration Dates Next Due HPV Vaccine, 4-Valent 07/25/2007,03/27/2007,01/06 Meningococcal Conjugate Vacc ine (Menactra/Menveo) 01/23/2007 Seasonal Influenza Vac., MDV , IM, 0.5 mL (Fluzone) 03/05/2008 TDAP, Age 7 and older, IM (Adacel) 12/26/2009 Varicella Vaccine (Chicken Pox) 01/31/1995 documented as [...] the money to buy more. Never true 02/08/20 24 Within the past 12 months, t he food you bought just didn't last and you didn't have money to get more. Never true 02/08/2024 [place] Depression Scale Answer Date Recorded [place] Depression Scale Total 0 03/01/2024 The thought of harming myself has occurred to me . Never 03/01/2024 Childcare Answer Date Recorded Do you feel overwhelmed with taking care of a child, family member or friend? No 02/08/2024 Does your family need help f inding childcare? (Household - for ages 0-17 years) Not on file 02/08/2024 Clothing Answer Date Recorded Have you been unable to get clothing when it was really needed? No 02/08/2024 Is your family able to get c lothes or diapers when needed? (Household - for ages 0-17 years) Not on file 02/08/2024 Personal Safety Answer Date Recorded Do you feel unsafe or have concerns for your saf ety? No 02/08/2024 Do you have concerns for you r family's safety? (Household - for ages 0-17 years) Not on file 02/08/2024 Utilities Answer Date Recorded Do you have trouble paying y our heating, water, or electric bill? No 02/08/2024 Is your family able to pay t he heat, water, or electric bill? (Household - for ages 0-17 years) Not on file 02/08/2024 Does your family have access to good internet? (Household - for ages 0-17 years) Not on file 02/08/2024 Employment Status Answer Date Recorded Are you unemployed or without regular income? No 02/08/2024 Does the household have a [facility] source of income? (Household - for ages 0-17 years) Not on file 02/08/2024 Social Connections Answer Date Recorded How often do you feel lonely or isolated from th ose around you? Never 02/08/2024 Financial Resource Strain Answer Date R ecorded Do you have any trouble payi ng for your medications, or do you think you might in the future? No 02/08/2024 Does your family have troubl e paying for medicine? (Household - for ages 0-17 years) Not on file 02/08/2024 Transportation Needs Answer Date Record ed Do you have trouble getting a ride to medical visits or work? (Adult - for ages 18 years and over) Not on file 02/08/2024 Does your family have a hard time getting a ride to doctors visits? (Household - for ages 0-17 years) Not on file 02/08/2024 Has lack of transportation k ept you from medical appointments, meetings, work, or from getting things needed for daily living? Check all that apply. No 02/08/2024 Do you (or your family) have trouble finding or paying for a ride (transportation)? (Household - for ages 0-17 years) Not on file 02/08/2024 Housing Stability Answer Date Recorded Do you currently live in a s helter or have no steady place to sleep at night? No 02/08/2024 Do you think you are at risk of becoming homeless? (Adult - for ages 18 years and over) Not on file 02/08/2024 Does your family worry about paying for your home or becoming homeless? (Household - for ages 0-17 years) Not on file 1 Are you homeless or worried that you might be in the future? No 02/08/2024 Are you (or your family) ashley eless or worried that you might be in the future? (Household - for ages 0-17 years) Not on file Food Insecurity Answer Date Recorded Do you need food for this week? No 02/08/2024 Are you able to get enough f ood for your family? (Household - for ages 0-17 years) Not on file 02/08/2024 Does your family need food t his week? (Household - for ages 0-17 years) Not on file 02/08/2024 Do you always have enough fo od for your family? (Household - for ages 0-17 years) Not on file 02/08/2024 Estimated Date of Delivery Comme nts Yes 09/16/2024 Based on Ultraso und Sex and Gender Information Value Date Recorded Sex Assigned at Female 02/08/2024 9:18 AM EDT Legal Sex Female 6:06 AM EST Gender Identity Female 02/08/2024 9:18 AM EDT Sexual Orientation Straight 02/08/2024 9: 18 AM EDT documented as of this encounter Miscellaneous Notes * Telephone Encounter - Mica Ponce LPN - 04/16/2024 10:16 AM EST Patient notified. Advised to schedule an upcoming visit with Dr. Jasso to discuss procedure and getit scheduled in office or OR once she is post * Telephone Encounter - Reanna Osborne CRNP - 04/16/2024 10:09 AM EST Colposcopy shows KANU 3; pre-cancerous. Recommend LEEP after delivery. No intervention needed until then. BRITTNEE Gutierrez documented in this encounter Plan of Treatment Upcoming Encounters Date Type Department Care Team (Late st Contact Info) Description 05/10/2024 9:45 AM EST Imaging Radiology [facility] 2nd Floor, [place] [address] [place] [address] 05/10/2024 11:30 AM EST Office Visit Gynecology/Obstetrics Timur Mahajan [address] [place] [address] Backer, BRITTNEE Lofton [address] [place] [address] Health Maintenance Due Date Last Done Comments Depression Screening 2005 DTap/Tdap Vaccines (9 - Td or Tdap) 12/27/2019 12/26/2009, 08/20/2004, 08/20/2004, Additional history exists COVID-19 Vaccine ( season) 2024 Pap Smear 03/01/2027 03/01/2024 Cervical Cancer Screening 03/01/2029 HPV/Co-Test 03/01/2029 03/01/2024 Hepatitis B Vaccine Completed 10/18/1994, 1993, 1993 MENINGOCOCCAL (MENACTRA/MENVEO) Aged Out 01/23/2007 No longer eligible based on patient's age to complete this topic HPV (Gardasil) Vaccine Completed , 03/27/2007, 01/23/2007 Influenza Vaccine (FLU shot) Completed 01/23/2024, 03/05/2008 Pneumococcal Vaccine: Pediatrics (0 to 5 Years) and At-Risk Patients (6 to 64 Years) Aged Out No longer eligible based on patient's age to complete this topic documented as of this encounter Medical Devices Not on filedocumented as of this encounter
--- OUTSIDE RECORDS SUMMARY | 2024-09-10 04:28 | External Medical Summary | Summary of Care ---
Author Name Unknown Organization [facility] Address [address] [facility] [place] [address] Phone [phone] Care Team Providers Care Helpdesk Specialist Name Role Phone Unavailable Primary Care Provider Unavailabl e Reason for Visit * Reason Comments Return Visit Encounter Details Date Type Department Care Team (Late st Contact Info) Description 03/29/2024 11:45 AM EST Office Visit Gynecology/Obstetric s [facility] [address] [place] [address] Reanna Osborne CRNP [address] [place] [address] Encounter for supervision of normal first in second trimester* Allergies No known active allergiesdocumented as of this encounter (statuses as of 03/29/2024) Medications Prena1 1.4 MG Oral Tablet Chewable Take by mouth. Active documented as of this encounter (statuses as of 03/29/2024) Active Problems Problem Noted Date Diagnosed Date Pap smear of cervix with ASCUS, cannot exclude H GSIL 03/11/2024 Overview (03/11/2024): At [facility] Supervision of normal first 03/01/2024 Ganglion 07/22/2008 Tobacco use disorder Estimated Date of Delivery Comme nts Yes 09/16/2024 Based on Ultraso und documented as of this encounter (statuses as of 03/29/2024) Resolved Problems Problem Noted Date Diagnosed Date Resolved Date Contraception 03/01/2024 documented as of this encounter (statuses as of 03/29/2024) Immunizations Name Administration Dates Next Due HPV [...] money to get more. Never true 02/08/2024 [place] Depression Scale Answer Date Recorded [place] Depression Scale Total 0 03/01/2024 The thought [...] No 02/08/2024 Does the household have a re gular [...] Reading Time Taken Comments Blood Pressure 100/60 03/29/2024 11:40 AM EST Pulse - - Temperature - - Respiratory Rate - - Oxygen Saturation - - Inhaled Oxygen Concentration - - Weight 80.3 kg (177 lb) 03/29/2024 11:40 AM EST Height - - Body Mass Index 31.11 03/01/2024 9:22 AM EDT documented in this encounter Progress Notes * Reanna Osborne CRNP - 03/29/2024 11:47 AM EST 15w4d No movement yet. Denies bleeding/cramping. Declines genetic screening. Will schedule anatomy scan. Return in 4 weeks. BRITTNEE Gutierrez documented in this encounter Plan of Treatment Upcoming Encounters Date Type Department Care Team (Late st Contact Info) Description 04/12/2024 9:00 AM EST Office Visit Gynecology/Obstetrics [facility] [address] [facility] [place] [address] Reanna Osborne CRNP [address] [place] [address] 05/10/2024 9:45 AM EST Imaging Radiology [facility] 2nd [facility] [place] [address] [place] [address] 05/10/2024 11:30 AM EST Office Visit Gynecology/Obstetrics [facility] [address] [place] [address] Backer, BRITTNEE Lofton [address] [place] [address] Scheduled Orders Name Type Priority Associated Diagnoses Orde r Schedule US PREG SINGLE/1ST GEST, 14 WEEKS OR LATER Medical Imaging Routine Encounter for supervision of normal first in second trimester Expected: 04/29/2024 (Approximate), Expires: 04/28/2025 Health Maintenance Due Date Last Done Comments [...] for supervision of normal first in second trimester- Primary Supervision of normal first documented in this encounter
--- OUTSIDE RECORDS SUMMARY | 2024-09-10 04:28 | External Medical Summary ---
Author Name Unknown Address Unknown Organization [id number]:[facility] - [address] [facility] [address] Laboratory Report Ordering Provider Test Date Status ALEXANDRA NEFF 07/05/2024 09:28:59 Final Observation Date Value Abnormality Reference (Units ) Status Treponema pallidum Ab [Presence] in Serum by Immunoassay 07/05/2024 09:28:59 Nonreactive Nonreactive Final No serologic evidence of syp hilis. No additional testing clinicially indicated at this time. Consider repeat testing in 2-4 weeks if acute or primary syphilis is suspected. Performing Location [facility] - [address] [place] [address]
--- OUTSIDE RECORDS SUMMARY | 2024-09-10 04:28 | External Medical Summary | Summary of Care ---
Author Name Unknown Organization [facility] Address [address] [facility] [place] [address] Phone [phone] Care Team Providers Care Grocery Deliverer Name Role Phone Unavailable Primary Care Provider Unavailabl e Reason for Visit * Reason Onset Date Comments abnormal pap 06/11/2024 Pap Close the Lo op Encounter Details Date Type Department Care Team (Late st Contact Info) Description 06/11/2024 Telephone Gynecology/Obstetrics [facility] [address] [place] [address] Reanna Osborne CRNP [address] [place] [address] abnormal pap (Pap Close the Loop) Allergies No known active allergiesdocumented as of this encounter (statuses as of 06/11/2024) Medications Prena1 1.4 MG Oral Tablet Chewable Take by mouth. Active Breast PumpIndications :Breast feeding status of mother EVA 09/16/24, Z39.1. Double electric pump 1 Each 05/10/2024 Active documented as of this encounter (statuses as of 06/11/2024) Active Problems Problem Noted Date Diagnosed Date [...] as of this encounter (statuses as of 06/11/2024) Resolved Problems Problem Noted Date Diagnosed Date Resolved Date Contraception 03/01/2024 documented as of this encounter (statuses as of 06/11/2024) Immunizations Name Administration Dates Next Due HPV [...] money to get more. Never true 04/26/2024 [place] Depression Scale Answer Date Recorded [place] Depression Scale Total 0 03/01/2024 The thought [...] ages 0-17 years) Not on file 04/26/2024 Estimated Date of Delivery Comme nts Yes 09/16/2024 Based on Ultraso und Sex and Gender Information Value Date Recorded Sex Assigned at Female 02/08/2024 9:18 AM EDT Legal Sex Female 6:06 AM EST Gender Identity Female 02/08/2024 9:18 AM EDT Sexual Orientation Straight 02/08/2024 9: 18 AM EDT documented as of this encounter Miscellaneous Notes * Telephone Encounter - Bettie Aggarwal LPN - 06/11/2024 9:15 AM EST Care Gaps Pap Close the Loop (follow up for abnormal pap smear) Date pap completed: 03/01/24 Results of pap: ASC-H Provider Recommendation: [place] [facility] Taken: Completed recommended Follow up documented in this encounter Plan of Treatment Upcoming Encounters Date Type Department Care Team (Late st Contact Info) Description 07/05/2024 8:20 AM EST Laboratory Laboratory, [facility] [address] [place] [address] MahajanOvidio bees [address] [facility] [place] [address] 07/05/2024 8:30 AM EST Office Visit Gynecology/Obstetrics Timur Mahajan [address] [place] [address] Backer, BRITTNEE Lofton [address] [place] [address] Health Maintenance Due Date Last Done Comments Depression Screening 2005 DTap/Tdap Vaccines (9 - Td or Tdap) 12/27/2019 12/26/2009, 08/20/2004, 08/20/2004, Additional history exists COVID-19 Vaccine (2023- season) 2024 Pap Smear 03/01/2027 03/01/2024 Cervical [...]
--- OUTSIDE RECORDS SUMMARY | 2024-09-10 04:28 | External Medical Summary | Summary of Care ---
Author Name Unknown Organization [facility] Address [address] [place] [address] Phone [phone] Care Team Providers Care Track Repair Worker Name Role Phone Unavailable Primary Care Provider Unavailabl e Reason for Visit * Reason Comments Colposcopy Encounter Details Date Type Department Care Team (Late st Contact Info) Description 04/12/2024 9:00 AM EST Office Visit Gynecology/Obstetric s [facility] [address] [place] [address] BackReanna corrales CRNP [address] [place] [address] Pap smear of cervix with ASCUS, cannot exclude HGSIL*; Encounter for supervision of normal first in second trimester Allergies No known active allergiesdocumented as of this encounter (statuses as of 04/12/2024) Medications Prena1 1.4 MG Oral Tablet Chewable Take by mouth. Active documented as of this encounter (statuses as of 04/12/2024) Active Problems Problem Noted Date Diagnosed Date Pap smear of cervix with ASCUS, cannot exclude H GSIL 03/11/2024 Overview (03/11/2024): At [facility] Supervision of normal first 03/01/2024 Ganglion 07/22/2008 Tobacco use disorder Estimated Date of Delivery Comme nts Yes 09/16/2024 Based on Ultraso und documented as of this encounter (statuses as of 04/12/2024) Resolved Problems Problem Noted Date Diagnosed Date Resolved Date Contraception 03/01/2024 documented as of this encounter (statuses as of 04/12/2024) Immunizations Name Administration Dates Next Due HPV [...] money to get more. Never true 02/08/2024 [place] Depression Scale Answer Date Recorded [place] Depression Scale Total 0 03/01/2024 The thought [...] Reading Time Taken Comments Blood Pressure 102/60 04/12/2024 8:51 AM EST Pulse - - Temperature - - Respiratory Rate - - Oxygen Saturation - - Inhaled Oxygen Concentration - - Weight 82.6 kg (182 lb) 04/12/2024 8:51 AM EST Height - - Body Mass Index 31.99 03/01/2024 9:22 AM EDT documented in this encounter Patient Instructions * Patient Instructions* Reanna Osborne CRNP - 04/12/2024 9:18 AM EST Post colposcopy instructions: You can expect a coffee ground discharge or light bleeding for about 1-2 weeks post procedure. Do not take Aspirin or aspirin-containing products ( it may increase the amount of vaginal bleedingand affect the ability to of the blood to clot). Take Tylenol or Advil for any discomfort Avoid heavy lifting, strenuous exercise, jogging, anything in the vagina ( intercourse, douching, tampons) for 7 days It is very important to keep all follow up appointments Call your health care provider if the following occurs: - Bright red vaginal bleeding- saturating a pad/hr - Foul smelling vaginal discharge - Pain - Fever of 100 degrees or greater documented in this encounter Progress Notes * Reanna Osborne CRNP - 04/12/2024 9:18 AM EST Colposcopy Procedure Helena Vitale presents for colposcopy for evaluation of recent pap showing: ASC-H, +HPV. Previous pap smears: normal BP 102/60 | Wt 82.6 kg (182 lb) | LMP 12/16/2023 (Within Days) | BMI 31.99 kg/m² | BSA 1.92 m² Reviewed in detail procedure, risks, benefits and indications. Pt is 17w4d . A ''time out'' was initiated by BRITTNEE Gutierrez.The patient was identified by name and dateof . The correct procedure, and correct site identified. Correct positioning (as applicable). There is availability of necessary equipment. Pt states she is not allergic to latex. PE: bimanual exam: Not performed. external genitalia: No lesions. vagina: No lesions. cervix: Lesion #1 Location: 1 o'clock: Appearance: Acetowhite and Punctation; Completely visualized: yes; Biopsied: yes Lesion #2 Location: 3 o'clock: Appearance: Acetowhite; Completely visualized: yes; Biopsied: yes Lesion #3 Location: 6 o'clock: Appearance: Acetowhite; Completely visualized: yes; Biopsied: yes Lesion #4 Location: 9 o'clock: Appearance: Acetowhite and Mosaic; Completely visualized: yes; Biopsied: yes Transformation Zone: Seen in entirety Satisfactory Colposcopy: yes Additional Biopsies: N/A ECC: no Impression 1. Pap smear of cervix with ASCUS, cannot exclude HGSIL (Primary) - SURGICAL PATHOLOGY 2. Encounter for supervision of normal first in second trimester F/U results on any testing done. Reviewed instructions including no sex, tampons, or douching for at least 7 days. BRITTNEE Gutierrez documented in this encounter Plan of Treatment Upcoming Encounters Date Type Department Care Team (Late st Contact Info) Description 05/10/2024 9:45 AM EST Imaging Radiology [facility] 2nd [facility] [place] [address] [place] [address] 05/10/2024 11:30 AM EST Office Visit Gynecology/Obstetrics [facility] [address] [place] [address] Backer, BRITTNEE Lofton [address] [place] [address] Pending Results Name Type Priority Associated Diagnoses Date /Time SURGICAL PATHOLOGY Pathology Routine Pap smear of cervix with ASCUS, cannot exclude HGSIL 04/12/2024 9:18 AM EST Health Maintenance Due Date Last [...] as of this encounter Visit Diagnoses Diagnosis Pap smear of cervix with ASCUS, cannot exclude HGSIL- Primary Papanicolaou smear of cervix with atypical squamous cells of undetermined significance (ASC-US) Encounter for supervision of normal first in second trimester Supervision of normal first documented in this encounter"
--- OUTSIDE RECORDS SUMMARY | 2024-09-10 04:28 | External Medical Summary ---
Author Name Unknown Address Unknown Organization K0G:[facility] - [address] [place] [address] Laboratory Report Ordering Provider Test Date Status ALEXANDRA NEFF 07/05/2024 09:28:59 Final Observation Date Value Abnormality Reference (Units ) Status WBC, Total 07/05/2024 09:28:59 9.49 4.00-10.8 0 (K/uL) Final RBC 07/05/2024 09:28:59 4.02 3.85-5.15 (M/uL) Final Hemoglobin 07/05/2024 09:28:59 12.2 12.0-15.3 (g/dL) Final Anemia reflex testing trigge rs on a HGB < 12.0 for Females and HGB < 13.0 for Males in accordance with the WHO Anemia Guidelines
Anemia reflex testing triggers on a HGB < 12.0 for Females and HGB < 13.0 for Males in accordance with the WHO Anemia Guidelines HCT 07/05/2024 09:28:59 37.1 36.0-45.2 (%) Final MCV 07/05/2024 09:28:59 92.3 81.5-97.5 (fL) Final MCH 07/05/2024 09:28:59 30.3 27.0-34.0 (pg) Final MCHC 07/05/2024 09:28:59 32.9 32.0-36.0 (g/dL) Final RDW 07/05/2024 09:28:59 13.5 11.5-15.5 (%) Final Platelets 07/05/2024 09:28:59 176 140-400 (K /uL) Final MPV 07/05/2024 09:28:59 12.9 6.6-11.1 ( fL) Final Performing Location [facility] - [address] [place] [id number]
--- OUTSIDE RECORDS SUMMARY | 2024-09-10 04:28 | External Medical Summary | Summary of Care ---
Author Name Unknown Organization [facility] Address [address] [facility] [place] [address] Phone [phone] Care Team Providers Care Biomedical Engineering Technologist Name Role Phone Unavailable Primary Care Provider Unavailabl e Reason for Visit * Reason Comments Return Visit Encounter Details Date Type Department Care Team (Latest Contact Info) Description 06/07/2024 8:45 AM EST Office Visit Gynecology/Obstetri Timur Mahajan [address] [place] [address] Debby Gant CRNP [address] [place] [address] Encounter for supervision of normal first in second trimester*; High grade squamous intraepithelial lesion (HGSIL), grade 3 KANU, on biopsy of cervix Allergies No known active allergiesdocumented as of this encounter (statuses as of 06/07/2024) Medications Prena1 1.4 MG Oral Tablet Chewable Take by mouth. Active Breast PumpIndications :Breast feeding status of mother EVA 09/16/24, Z39.1. Double electric pump 1 Each 05/10/2024 Active documented as of this encounter (statuses as of 06/07/2024) Active Problems Problem Noted Date Diagnosed Date [...] as of this encounter (statuses as of 06/07/2024) Resolved Problems Problem Noted Date Diagnosed Date Resolved Date Contraception 03/01/2024 documented as of this encounter (statuses as of 06/07/2024) Immunizations Name Administration Dates Next Due HPV [...] money to get more. Never true 04/26/2024 [place] Depression Scale Answer Date Recorded [place] Depression Scale Total 0 03/01/2024 The thought [...] Sign Reading Time Taken Comments Blood Pressure 98/58 06/07/2024 8:24 AM EST Pulse - - Temperature - - Respiratory Rate - - Oxygen Saturation - - Inhaled Oxygen Concentration - - Weight 86 kg (189 lb 9.6 oz) 06/07/2024 8:24 AM EST Height - - Body Mass Index 33.32 03/01/2024 9:22 AM EDT documented in this encounter Progress Notes * Debby Gant CRNP - 06/07/2024 8:36 AM EST 25w4d No concerns. Feeling great. Baby is active. Denies contractions, bleeding. Glucola with next visit. BRITTNEE Spear * Melinda Tan CMA - 06/07/2024 8:24 AM EST 25w4d Denies any concerns documented in this encounter Plan of Treatment Upcoming Encounters Date Type Department Care Team (Late st Contact Info) Description 07/05/2024 8:20 AM EST Laboratory Laboratory, [facility] [address] [place] [phone] [facility] [address] [place] [address] 07/05/2024 8:30 AM EST Office Visit Gynecology/Obstetrics [facility] [address] [place] [address] Backer, BRITTNEE Lofton [address] [place] [address] Scheduled Orders Name Type Priority Associated Diagnoses Orde r Schedule SYPHILIS ANTIBODY SCREEN WITH REFLEX TO RPR Lab Routine Encounter for supervision of normal first in second trimester Expected: 06/24/2024 (Approximate), Expires: 06/07/2025 CBC WITH WBC DIFFERENTIAL AND ANEMIA REFLEX WORKUP Lab Routine Encounter for supervision of normal first in second trimester Expected: 06/24/2024 (Approximate), Expires: 06/07/2025 50-G GESTATIONAL GLUCOSE, 1 HOUR Lab Routine Encounter for supervision of normal first in second trimester Expected: 06/24/2024 (Approximate), Expires: 06/07/2025 Health Maintenance Due Date Last Done Comments [...] second trimester- Primary Supervision of normal first High grade squamous intraepithelial lesion (HGSIL), grade 3 KANU, on biopsy of cervix documented in this encounter
--- OUTSIDE RECORDS SUMMARY | 2024-09-10 04:28 | External Medical Summary | Summary of Care ---
Author Name Unknown Organization [facility] Address [address] [facility] [place] [address] Phone [phone] Care Team Providers Care Manager Relocation Name Role Phone Unavailable Primary Care Provider Unavailabl e Reason for Visit * Reason Comments Return Visit Encounter Details Date Type Department Care Team (Late st Contact Info) Description 05/10/2024 11:30 AM EST Office Visit [facility] [address] [place] [address] Reanna Osborne CRNP [address] [place] [address] Encounter for supervision of normal first in second trimester*; High grade squamous intraepithelial lesion (HGSIL), grade 3 KANU, on biopsy of cervix; Breast feeding status of mother Allergies No known active allergiesdocumented as of this encounter (statuses as of 05/10/2024) Medications Prena1 1.4 MG Oral Tablet Chewable Take by mouth. Active Breast PumpIndications :Breast feeding status of mother EVA 09/16/24, Z39.1. Double electric pump 1 Each 05/10/2024 Active documented as of this encounter (statuses as of 05/10/2024) Active Problems Problem Noted Date Diagnosed Date [...] as of this encounter (statuses as of 05/10/2024) Resolved Problems Problem Noted Date Diagnosed Date Resolved Date Contraception 03/01/2024 documented as of this encounter (statuses as of 05/10/2024) Immunizations Name Administration Dates Next Due HPV [...] money to get more. Never true 04/26/2024 [place] Depression Scale Answer Date Recorded [place] Depression Scale Total 0 03/01/2024 The thought [...] Reading Time Taken Comments Blood Pressure 100/60 05/10/2024 10:37 AM EST Pulse - - Temperature - - Respiratory Rate - - Oxygen Saturation - - Inhaled Oxygen Concentration - - Weight 83.8 kg (184 lb 12.8 oz) 025 10:37 AM EST Height - - Body Mass Index 32.48 03/01/2024 9:22 AM EDT documented in this encounter Progress Notes * Reanna Osborne CRNP - 05/10/2024 10:44 AM EST 21w4d Anatomy scan today, normal findings. + movement. Denies cramping/bleeding. Requests a breast pump rx, provided. 4 week return BRITTNEE Gutierrez documented in this encounter Plan of Treatment Upcoming Encounters Date Type Department Care Team (Late st Contact Info) Description 06/07/2024 8:45 AM EST Office Visit Gynecology/Obstetrics Timur Mahajan [address] [place] [address] Debby Gant CRNP [address] [place] [address] Health Maintenance Due Date Last Done Comments [...] grade 3 KANU, on biopsy of cervix Breast feeding status of mother care and examination of lactating mother documented in this encounter
--- OUTSIDE RECORDS SUMMARY | 2024-09-10 04:28 | External Medical Summary ---
Author Name Unknown Address Unknown Organization [id number] [place] [id number] Laboratory Report Ordering Provider Test Date Status ALEXANDRA NEFF 07/05/2024 09:28:59 Final Observation Date Value Abnormality Reference (Units ) Status SYNC LEUKOCYTES IN BLOOD BY AUTOMATED COUNT 07/05/2024 09:28:59 9.49 4.00-10.80 (K/uL) Final Segs 07/05/2024 09:28:59 80.2 Above high normal 40.0-75.0 (%) Final Lymphs % 07/05/2024 09:28:59 14.0 Below low normal 18.0-42.0 (%) Final Monos 07/05/2024 09:28:59 5.1 1.0-11.0 (%) Final Eosinophils 07/05/2024 09:28:59 0.6 0.0-6.0 (%) Final Basos 07/05/2024 09:28:59 0.1 0.0-2.0 (%) Final Absolute Segs 07/05/2024 09:28:59 7.61 1.80-7.70 (K/uL) Final Lymphs, absolute 07/05/2024 09:28:59 1.33 1.00-4.80 (K/ul) Final Monos, Abs 07/05/2024 09:28:59 0.48 0.00-1.10 (K/uL) Final Eos, Abs 07/05/2024 09:28:59 0.06 0.00-0.70 (K/uL) Final Basos, Abs 07/05/2024 09:28:59 0.01 0.00-0.20 (K/uL) Final Performing Location [facility] [address] [place] [id number]
[2024-09-10] MEDS: fentaNYL citrate PF 100 MCG/2 ML VIAL EPI STA (04:40)
[2024-09-10] MEDS: BUPIVACAINE 0.25% PF 30 ML VIAL EPI STA (04:40)
[2024-09-10] MEDS: SODIUM CHLORIDE 0.9% PF INJ 10 ML VIAL EPI STA (04:41)
[2024-09-10] MEDS: LIDOCAINE 2%/EPINEPHRINE 1:200,000 20 ML PF EPI STA (04:41)
[2024-09-10] MEDS: ePHEDrine sulfate 50 MG/ML AMP ONE (04:42)
--- NOTE | 2024-09-10 07:55 | Labor Progress Brief Note ---
Date of Service September 10, 2024 Assessment & Plan Admission and Anticipated Discharge Date Admission Date: September 09, 2024 Physical Exam Genitourinary: Manual OB Exam: + cervical dilation 9 cm, + cervical effacement 100%, + station 0 and + amniotic fluid clear OB Exam Monitor Tracing: + external FHT monitor used, + external uterine monitor used, + category I and + normal FHT variability cervix with rim on right side and posterior will hold off pushing Results & Data Vital Signs (Past 12 Hours) Vital Signs Temp Pulse Resp BP Pulse Ox O2 Del Method 09/10/24 07:49 91 H 136/63 09/10/24 07:47 91 H 100 09/10/24 07:42 89 100 09/10/24 07:37 86 96 09/10/24 07:34 75 128/79 09/10/24 07:32 82 99 09/10/24 07:27 75 98 09/10/24 07:22 76 97 09/10/24 07:21 85 94 09/10/24 07:18 81 127/78 09/10/24 07:17 81 97 09/10/24 07:12 100 H 99 09/10/24 07:07 87 97 09/10/24 07:03 37.4 C Room Air 09/10/24 07:03 82 116/73 09/10/24 07:02 82 97 09/10/24 06:57 82 97 09/10/24 06:52 75 96 09/10/24 06:48 75 126/72 09/10/24 06:47 74 96 09/10/24 06:42 74 96 09/10/24 06:37 80 96 09/10/24 06:33 82 155/68 H 09/10/24 06:32 76 97 09/10/24 06:27 76 96 09/10/24 06:22 78 97 09/10/24 06:18 104 H 100/64 09/10/24 06:17 94 H 97 09/10/24 06:13 107 H 91 09/10/24 06:12 88 99 09/10/24 06:07 90 100 09/10/24 06:02 83 100 09/10/24 05:57 82 100 09/10/24 05:52 78 100 09/10/24 05:50 78 172/72 H 09/10/24 05:47 86 100 09/10/24 05:42 86 100 09/10/24 05:37 100 H 100 09/10/24 05:33 67 109/60 09/10/24 05:32 68 98 09/10/24 05:28 74 92 09/10/24 05:27 67 97 09/10/24 05:22 74 97 09/10/24 05:21 75 105/55 L 09/10/24 05:17 69 97 09/10/24 05:12 75 97 09/10/24 05:07 74 98 09/10/24 05:04 64 91/57 L 09/10/24 05:02 94 09/10/24 05:02 71 09/10/24 05:02 72 94 09/10/24 04:57 71 93 09/10/24 04:56 71 94 09/10/24 04:52 70 94 09/10/24 04:49 72 94 09/10/24 04:48 64 112/55 L 09/10/24 04:47 68 95 09/10/24 04:42 76 94 09/10/24 04:41 71 94 09/10/24 04:37 75 94 09/10/24 04:36 73 94 09/10/24 04:33 75 102/54 L 09/10/24 04:32 75 97 09/10/24 04:27 72 96 09/10/24 04:22 71 96 09/10/24 04:19 65 100/57 L 09/10/24 04:17 65 96 09/10/24 04:12 69 96 09/10/24 04:07 71 97 09/10/24 04:05 73 111/56 L 09/10/24 04:02 86 99 09/10/24 03:57 82 98 09/10/24 03:52 82 97 09/10/24 03:48 69 118/68 09/10/24 03:47 75 95 09/10/24 03:42 82 98 09/10/24 03:37 86 98 09/10/24 03:34 78 128/80 09/10/24 03:32 75 97 09/10/24 03:30 18 09/10/24 03:30 37.4 C 18 09/10/24 03:27 84 99 09/10/24 03:22 77 97 09/10/24 03:19 66 91/52 L 09/10/24 03:17 94 09/10/24 03:17 72 05 03:17 73 94 09/10/24 03:12 68 95 09/10/24 03:07 71 96 09/10/24 03:04 68 100/52 L 09/10/24 03:02 73 95 09/10/24 02:57 66 97 09/10/24 02:52 74 99 09/10/24 02:48 68 101/58 L 09/10/24 02:47 69 96 09/10/24 02:42 71 97 09/10/24 02:37 74 98 09/10/24 02:33 68 101/53 L 09/10/24 02:32 85 97 09/10/24 02:27 81 98 09/10/24 02:22 68 95 09/10/24 02:21 72 94 09/10/24 02:18 65 111/56 L 09/10/24 02:17 68 95 09/10/24 02:13 67 94 09/10/24 02:12 75 93 09/10/24 02:07 95 09/10/24 02:07 67 09/10/24 02:07 71 94 09/10/24 02:03 67 108/55 L 09/10/24 02:02 71 94 09/10/24 02:01 69 94 09/10/24 01:57 79 94 09/10/24 01:55 67 93 09/10/24 01:52 69 94 09/10/24 01:48 71 111/59 L 94 09/10/24 01:47 71 94 09/10/24 01:43 69 94 09/10/24 01:42 69 95 09/10/24 01:37 70 92 09/10/24 01:33 66 100/50 L 09/10/24 01:32 71 92 09/10/24 01:27 71 91 09/10/24 01:22 69 92 09/10/24 01:20 65 100/58 L 09/10/24 01:17 74 92 09/10/24 01:12 69 92 09/10/24 01:07 71 93 09/10/24 01:03 65 109/57 L 09/10/24 01:02 94 09/10/24 01:02 67 05/06/25 01:02 67 94 09/10/24 00:58 68 110/59 L 09/10/24 00:57 66 95 09/10/24 00:54 69 94 09/10/24 00:52 96 09/10/24 00:52 69 09/10/24 00:52 73 109/55 L 09/10/24 00:47 97 09/10/24 00:47 69 09/10/24 00:47 75 122/53 L 09/10/24 00:42 72 97 09/10/24 00:37 98 09/10/24 00:37 71 09/10/24 00:37 73 110/58 L 09/10/24 00:32 81 98 09/10/24 00:31 74 100/57 L 09/10/24 00:29 71 101/59 L 09/10/24 00:27 72 102/57 L 96 09/10/24 00:25 71 102/59 L 09/10/24 00:23 71 103/56 L 09/10/24 00:22 67 99 09/10/24 00:21 70 104/55 L 09/10/24 00:20 80 110/54 L 09/10/24 00:17 98 09/10/24 00:17 74 09/10/24 00:17 86 140/88 09/10/24 00:12 88 98 09/10/24 00:07 84 99 09/10/24 00:02 98 H 98 09/09/24 23:59 77 93 09/09/24 23:57 78 99 09/09/24 23:34 91 H 99 09/09/24 23:29 80 96 09/09/24 23:24 82 100 09/09/24 23:19 79 98 09/09/24 22:40 36.6 C 18 09/09/24 22:06 76 126/77
[2024-09-10] MEDS: fentANYL 2 MCG/ML BUPIVacaine 0.125%-NSS 100ML BAG EPI PRN (09:24)
--- NOTE | 2024-09-10 10:04 | Obstetrical Progress Note ---
Date of Service September 10, 2024 Assessment & Plan (1) : Plan: Pt in labor Met pt after sign out earlier Called to evaluate pt for delec. into the 80's x4mins- This occurred after after bladder cath. On arrival. Pt was on left side, IVF with oxygen mask and FHr was returning to base line VE; 10/100/-1 Baby responded to scalp stimulation and variability is moderate Plan will start pushing shortly Admission and Anticipated Discharge Date Admission Date: September 09, 2024 Results & Data Vital Signs (Past 12 Hours) Vital Signs Temp Pulse Resp BP Pulse Ox O2 Del Method 09/10/24 09:57 95 H 100 09/10/24 09:52 88 100 09/10/24 09:47 91 H 98 09/10/24 09:42 80 99 09/10/24 09:37 102 H 99 09/10/24 09:35 80 129/57 L 09/10/24 09:32 82 98 09/10/24 09:27 80 98 09/10/24 09:22 85 99 09/10/24 09:18 79 110/64 09/10/24 09:17 79 99 09/10/24 09:12 92 H 98 09/10/24 09:08 37.2 C 09/10/24 09:07 103 H 98 09/10/24 09:02 86 98 09/10/24 08:57 84 97 09/10/24 08:52 74 97 09/10/24 08:48 74 126/73 09/10/24 08:47 76 97 09/10/24 08:42 81 98 09/10/24 08:37 84 99 09/10/24 08:33 89 124/66 09/10/24 08:32 85 96 09/10/24 08:27 75 97 09/10/24 08:22 73 97 09/10/24 08:18 71 127/74 09/10/24 08:17 74 97 09/10/24 08:12 77 97 09/10/24 08:07 82 97 09/10/24 08:03 71 121/67 09/10/24 08:02 78 99 09/10/24 07:57 79 98 09/10/24 07:52 78 100 09/10/24 07:49 91 H 136/63 09/10/24 07:47 91 H 100 09/10/24 07:42 89 100 09/10/24 07:37 86 96 09/10/24 07:34 75 128/79 09/10/24 07:32 82 99 09/10/24 07:27 75 98 09/10/24 07:22 76 97 09/10/24 07:21 85 94 09/10/24 07:18 81 127/78 09/10/24 07:17 81 97 09/10/24 07:12 100 H 99 09/10/24 07:07 87 97 09/10/24 07:03 37.4 C Room Air 09/10/24 07:03 82 116/73 09/10/24 07:02 82 97 09/10/24 06:57 82 97 09/10/24 06:52 75 96 09/10/24 06:48 75 126/72 09/10/24 06:47 74 96 09/10/24 06:42 74 96 09/10/24 06:37 80 96 09/10/24 06:33 82 155/68 H 09/10/24 06:32 76 97 09/10/24 06:27 76 96 09/10/24 06:22 78 97 09/10/24 06:18 104 H 100/64 09/10/24 06:17 94 H 97 09/10/24 06:13 107 H 91 09/10/24 06:12 88 99 09/10/24 06:07 90 100 09/10/24 06:02 83 100 09/10/24 05:57 82 100 09/10/24 05:52 78 100 09/10/24 05:50 78 172/72 H 09/10/24 05:47 86 100 09/10/24 05:42 86 100 09/10/24 05:37 100 H 100 09/10/24 05:33 67 109/60 09/10/24 05:32 68 98 06 05:28 74 92 06 05:27 67 97 09/10/24 05:22 74 97 09/10/24 05:21 75 105/55 L 09/10/24 05:17 69 97 06 05:12 75 97 09/10/24 05:07 74 98 06 05:04 64 91/57 L 09/10/24 05:02 94 05/06/25 05:02 71 09/10/24 05:02 72 94 09/10/24 04:57 71 93 09/10/24 04:56 71 94 09/10/24 04:52 70 94 09/10/24 04:49 72 94 09/10/24 04:48 64 112/55 L 09/10/24 04:47 68 95 09/10/24 04:42 76 94 09/10/24 04:41 71 94 09/10/24 04:37 75 94 09/10/24 04:36 73 94 09/10/24 04:33 75 102/54 L 09/10/24 04:32 75 97 09/10/24 04:27 72 96 09/10/24 04:22 71 96 09/10/24 04:19 65 100/57 L 09/10/24 04:17 65 96 09/10/24 04:12 69 96 09/10/24 04:07 71 97 09/10/24 04:05 73 111/56 L 09/10/24 04:02 86 99 09/10/24 03:57 82 98 09/10/24 03:52 82 97 09/10/24 03:48 69 118/68 09/10/24 03:47 75 95 09/10/24 03:42 82 98 09/10/24 03:37 86 98 09/10/24 03:34 78 128/80 09/10/24 03:32 75 97 09/10/24 03:30 18 09/10/24 03:30 37.4 C 18 09/10/24 03:27 84 99 09/10/24 03:22 77 97 09/10/24 03:19 66 91/52 L 09/10/24 03:17 94 09/10/24 03:17 72 09/10/24 03:17 73 94 09/10/24 03:12 68 95 09/10/24 03:07 71 96 09/10/24 03:04 68 100/52 L 09/10/24 03:02 73 95 09/10/24 02:57 66 97 09/10/24 02:52 74 99 09/10/24 02:48 68 101/58 L 09/10/24 02:47 69 96 09/10/24 02:42 71 97 09/10/24 02:37 74 98 09/10/24 02:33 68 101/53 L 09/10/24 02:32 85 97 09/10/24 02:27 81 98 09/10/24 02:22 68 95 09/10/24 02:21 72 94 09/10/24 02:18 65 111/56 L 09/10/24 02:17 68 95 09/10/24 02:13 67 94 09/10/24 02:12 75 93 09/10/24 02:07 95 09/10/24 02:07 67 09/10/24 02:07 71 94 09/10/24 02:03 67 108/55 L 09/10/24 02:02 71 94 09/10/24 02:01 69 94 09/10/24 01:57 79 94 09/10/24 01:55 67 93 09/10/24 01:52 69 94 09/10/24 01:48 71 111/59 L 94 09/10/24 01:47 71 94 09/10/24 01:43 69 94 09/10/24 01:42 69 95 09/10/24 01:37 70 92 09/10/24 01:33 66 100/50 L 09/10/24 01:32 71 92 09/10/24 01:27 71 91 09/10/24 01:22 69 92 09/10/24 01:20 65 100/58 L 09/10/24 01:17 74 92 09/10/24 01:12 69 92 09/10/24 01:07 71 93 09/10/24 01:03 65 109/57 L 09/10/24 01:02 94 09/10/24 01:02 67 09/10/24 01:02 67 94 09/10/24 00:58 68 110/59 L 09/10/24 00:57 66 95 09/10/24 00:54 69 94 09/10/24 00:52 96 09/10/24 00:52 69 09/10/24 00:52 73 109/55 L 09/10/24 00:47 97 09/10/24 00:47 69 09/10/24 00:47 75 122/53 L 09/10/24 00:42 72 97 09/10/24 00:37 98 09/10/24 00:37 71 09/10/24 00:37 73 110/58 L 09/10/24 00:32 81 98 09/10/24 00:31 74 100/57 L 09/10/24 00:29 71 101/59 L 09/10/24 00:27 72 102/57 L 96 09/10/24 00:25 71 102/59 L 09/10/24 00:23 71 103/56 L 09/10/24 00:22 67 99 09/10/24 00:21 70 104/55 L 09/10/24 00:20 80 110/54 L 09/10/24 00:17 98 09/10/24 00:17 74 09/10/24 00:17 86 140/88 09/10/24 00:12 88 98 09/10/24 00:07 84 99 09/10/24 00:02 98 H 98 09/09/24 23:59 77 93 09/09/24 23:57 78 99 09/09/24 23:34 91 H 99 09/09/24 23:29 80 96 09/09/24 23:24 82 100 09/09/24 23:19 79 98 09/09/24 22:40 36.6 C 18 09/09/24 22:06 76 126/77
[2024-09-10] MEDS: OXYTOCIN 30 UNITS/NSS 30 UNITS/500 ML BAG IV PRN ×2 (11:15→14:20)
[2024-09-10] MEDS: METHYLERGONOVINE MALEATE 0.2 MG/ML AMP ONE (13:52)
[2024-09-10] MEDS: miSOPROStoL 200 MCG TAB ONE (14:11)
[2024-09-10] MEDS ORDERED: bisacodyL 10 MG SUPP PR PRN (14:32)
[2024-09-10] MEDS ORDERED: miSOPROStoL 200 MCG TAB PR ONE (14:32)
[2024-09-10] MEDS ORDERED: BENZOCAINE 20% SPRY 85 APPLN/85 GM CAN EXT PRN (14:32)
[2024-09-10] MEDS ORDERED: DIPHTHER/TETAN/PERTUS Vaccine (Tdap, Adol/Adult) 0.5mL IM ONE (14:32)
[2024-09-10] MEDS ORDERED: HYDROCORTISONE ACETATE 25 MG SUPP PR PRN (14:32)
[2024-09-10] MEDS ORDERED: OXYTOCIN 30 UNITS/NSS 30 UNITS/500 ML BAG IV PRN (14:32)
[2024-09-10] MEDS ORDERED: METHYLERGONOVINE MALEATE 0.2 MG/ML AMP IM ONE (14:32)
--- NOTE | 2024-09-10 14:35 | Delivery Summary ---
Vaginal Delivery Summary Date of Service September 10, 2024 DELIVERY NOTE Patient delivered a live male in left occiput anterior presentation there was no nuchal cord. was delivered and placed on mother's abdomen. Delayed cord clamping was performed. Cord blood is obtained Cord gasses are ordered Meconium is absen Placenta is spontaneously delivered. Placenta appears grossly normal and has 3 vessel cord Inspection of the perineum showed a second-degree midline laceration. Laceration is repaired in layers with 2-0 and 3-0 Vicryl in layers Rectal exam post repair showed good sphincter tone no sutures palpated in the rectum. Quantitative blood loss is 822 cc per Infants weight and scores are in the pediatric record Mother and baby are stable in in the recovery
[2024-09-10] MEDS: ONDANSETRON INJ 2 MG/ML 2 ML VIAL IV PRN (14:49)
--- NOTE | 2024-09-10 14:59 | Anesthesia Procedure Note ---
Date of Service September 10, 2024 Anesthesia Post Epidural Note Vital Signs Vital Signs: Temp Pulse Resp BP Pulse Ox O2 Del Method 37.2 C 77 18 123/66 99 Room Air 09/10/24 09:08 09/10/24 14:56 09/10/24 03:30 09/10/24 14:56 09/10/24 14:17 09/10/24 07:03 Pain Intensity Left Abdomen: Pain Intensity: 0 Notes Mental Status: alert / awake / arousable and participated in evaluation Patient Amnestic to Procedure: No Nausea / Vomiting: adequately controlled Pain: adequately controlled Airway Patency, RR, SpO2: stable & adequate BP & HR: stable & adequate Hydration State: stable & adequate Neuraxial Anesthesia: was administered and sensory block is resolving Anesthetic Complications: no major complications apparent and Pt Satisfied with anesthetic care Epidural: Removed without complications and With tip intact
[2024-09-10 15:05] LABS: Base Excess Cord Arterial Bld -3.9 mEq/L (-9-1.8); CO2 Cord Arterial Blood 54 mmHg (39.1-73.5); HCO3 Cord Arterial Blood 24 mmol/L (19.7-28.5); Oxygen Sat Cord Arterial Blood < 60.0 % (<60); PO2 Cord Arterial Blood < 20 mmHg (4.1-31.7); pH Cord Arterial Blood 7.26 (7.1-7.38)
[2024-09-10 15:07] LABS: Base Excess Cord Venous Blood -3.3 mEq/L (-7.7-1.9); Cord Venous Blood HCO3 21 mmol/L (18.4-26.8); Cord Venous Blood PCO2 37 mmHg (30.4-57.2); Cord Venous Blood PO2 32 mmHg (14.1-43.3); Cord Venous Blood pH 7.37 (7.20-7.44); O2 Saturation Cord Venous Bld 68.8 % (<68)
[2024-09-10] MEDS: ACETAMINOPHEN 325 MG TAB PO PRN (15:50)
[2024-09-10] MEDS: IBUPROFEN 600 MG TAB PO PRN (17:35)
[2024-09-10] MEDS: DOCUSATE SODIUM 100 MG CAP PO SCH (20:51)
[2024-09-11 06:22] LABS: Hematocrit (blood only) 29.1 % (37.0-47.0); Hemoglobin 9.8 g/dl (12.0-16.0); Mean Corpuscular Hemoglobin 29.6 pg (25.0-34.0); Mean Corpuscular Hgb Conc 33.7 g/dL (32.0-36.0); Mean Corpuscular Volume 87.9 fL (80.0-100.0); Mean Platelet Volume 13.6 fL (9.4-12.4); Platelet Count 131 K/uL (130-400); RDW Standard Deviation 44.6 fL (36.4-46.3); Red Blood Count 3.31 M/uL (4.20-5.40); White Blood Count 13.18 K/ul (4.8-10.8)
--- NOTE | 2024-09-11 07:52 | Obstetrical Progress Note ---
Date of Service September 11, 2024 Assessment & Plan Admission and Anticipated Discharge Date Admission Date: September 09, 2024 Subjective Patient is seen and examined. She feels well, no complaints. Ambulating without dizziness Voiding without difficulty Tolerating regular diet with out N&V Bleeding is minimal No fever/ chills/ CP/ SOB/ N&V/ Leg pain Breast feeding without problems Vital Signs Temp Pulse Resp BP Pulse Ox O2 Del Method 09/11/24 04:25 36.8 C 86 18 130/88 99 Room Air 09/10/24 23:00 36.8 C 87 18 110/70 98 Room Air 09/10/24 20:40 36.5 C 82 18 114/74 97 Room Air Lab Results 09/09/24 09/09/24 09/10/24 Range/Units 22:33 22:34 13:40 WBC 10.28 (4.8-10.8) K/ul RBC 4.27 (4.20-5.40) M/uL Hgb 12.4 (12.0-16.0) g/dl Hct 36.8 L (37.0-47.0) % MCV 86.2 (80.0-100.0) fL MCH 29.0 (25.0-34.0) pg MCHC 33.7 (32.0-36.0) g/dL RDW Std Deviation 43.4 (36.4-46.3) fL RDW Coeff of Naz 13.8 (11.5-14.5) % Plt Count 167 (130-400) K/uL MPV 13.6 H (9.4-12.4) fL Cord ABG pH (7.1-7.38) Cord ABG pCO2 (39.1-73.5) mmHg Cord ABG pO2 (4.1-31.7) mmHg Cord ABG HCO3 (19.7-28.5) mmol/L Cord ABG Base Excess (-9-1.8) mEq/L Cord ABG O2 Sat (<60) % Cord VBG pH 7.37 (7.20-7.44) Cord VBG pCO2 37 (30.4-57.2) mmHg Cord VBG pO2 32 (14.1-43.3) mmHg Cord VBG HCO3 21 (18.4-26.8) mmol/L Cord VBG Base Excess -3.3 (-7.7-1.9) mEq/L Cord VBG O2 Sat 68.8 H (<68) % Blood Gas Comments CANNON Treponema pallidum Ab Negative (Negative) 09/10/24 09/11/24 Range/Units 13:42 05:50 WBC 13.18 H (4.8-10.8) K/ul RBC 3.31 L (4.20-5.40) M/uL Hgb 9.8 L (12.0-16.0) g/dl Hct 29.1 L (37.0-47.0) % MCV 87.9 (80.0-100.0) fL MCH 29.6 (25.0-34.0) pg MCHC 33.7 (32.0-36.0) g/dL RDW Std Deviation 44.6 (36.4-46.3) fL RDW Coeff of Naz 14.0 (11.5-14.5) % Plt Count 131 (130-400) K/uL MPV 13.6 H (9.4-12.4) fL Cord ABG pH 7.26 (7.1-7.38) Cord ABG pCO2 54 (39.1-73.5) mmHg Cord ABG pO2 < 20 (4.1-31.7) mmHg Cord ABG HCO3 24 (19.7-28.5) mmol/L Cord ABG Base Excess -3.9 (-9-1.8) mEq/L Cord ABG O2 Sat < 60.0 (<60) % Cord VBG pH (7.20-7.44) Cord VBG pCO2 (30.4-57.2) mmHg Cord VBG pO2 (14.1-43.3) mmHg Cord VBG HCO3 (18.4-26.8) mmol/L Cord VBG Base Excess (-7.7-1.9) mEq/L Cord VBG O2 Sat (<68) % Blood Gas Comments CANNON Treponema pallidum Ab (Negative) PE: General: Alert, orientedx3, NAD Abd: soft, NT, fundus firm, below Umbilicus Perineum intact, Lochia rubra minimal Ext; NT, no edema AP: 29 yo s/p , ppd# 1 VSS Afebrile doing well One time temp after rectal cytotec, recovered Continue routine care All questions were answered D/C home tomorrow Results & Data Vital Signs (Past 12 Hours) Vital Signs Temp Pulse Resp BP Pulse Ox O2 Del Method 09/11/24 04:25 36.8 C 86 18 130/88 99 Room Air 09/10/24 23:00 36.8 C 87 18 110/70 98 Room Air 09/10/24 20:40 36.5 C 82 18 114/74 97 Room Air
[2024-09-11 08:31] VITALS: RESP 16
[2024-09-11] MEDS: PRENATAL VITAMIN 1 TAB PO SCH (09:28)
[2024-09-11] MEDS: bisacodyL 5 MG TABEC PO SCH (19:33)
[2024-09-12 06:15] LABS: Basophils # (auto) 0.02 K/uL (0.00-0.20); Basophils % (auto) 0.2 %; Eosinophils # (auto) 0.22 K/uL (0.00-0.50); Eosinophils % (auto) 2.1 %; Hematocrit (blood only) 28.3 % (37.0-47.0); Hemoglobin 9.5 g/dl (12.0-16.0); Immature Granulocytes # (auto) 0.08 K/uL (0.01-0.20); Immature Granulocytes % (auto) 0.8 %; Lymphocytes # (auto) 2.25 K/uL (1.20-3.40); Lymphocytes % (auto) 21.1 %; Mean Corpuscular Hemoglobin 29.4 pg (25.0-34.0); Mean Corpuscular Hgb Conc 33.6 g/dL (32.0-36.0); Mean Corpuscular Volume 87.6 fL (80.0-100.0); Mean Platelet Volume 13.2 fL (9.4-12.4); Monocytes # (auto) 0.46 K/uL (0.11-0.59); Monocytes % (auto) 4.3 %; Neutrophils # (auto) 7.63 K/uL (1.40-6.50); Neutrophils % (auto) 71.5 %; Platelet Count 142 K/uL (130-400); RDW Standard Deviation 44.4 fL (36.4-46.3); Red Blood Count 3.23 M/uL (4.20-5.40); White Blood Count 10.66 K/ul (4.8-10.8)
--- NOTE | 2024-09-12 09:14 | Discharge Summary ---
Date of Service September 12, 2024 Admission HPI Per Admitting Provider 29 F P0000 at 39 nweeks with SROM this evening around 8 PM clear fluid with irregular contractions. GBS is negative. course has been uncomplicated. Discharge Data Consultations 09/09/24 22:29 Consult Anesthesiology Stat Discharge Instructions ACTIVITY RECOMMENDATIONS: * Gradual return to full activity over the next 2-3 weeks. * No lifting - nothing heavier than baby over the next 2-3 weeks. * Do not engage in vigorous exercise, sexual activity or sports until cleared by your physician. * Do not drive or operate any motorized equipment until cleared by your physician. * You may shower/bathe daily. BREAST CARE: If you are not breast feeding: * Wear a supportive bra 24 hours a day for one to two weeks. * Avoid stimulating your breasts and nipples as much as possible during the first few weeks after delivery. * When taking a shower, have the warm water hit your back, not breasts. * When your breasts feel full, apply ice packs. Usually three to four times a day helps ease the discomfort. * Take a mild pain medication (Tylenol/Motrin) when you are uncomfortable. If breast feeding: * Use breast milk to lubricate nipples. Lansinoh cream may be used for sore nipples. You do not need to remove cream prior to breast feeding. If using a di fferent brand of cream, check the label for directions regarding removal of cream prior to nursing. * Wear a supportive bra. * If having problems with breasts or breast feeding, call a regulatory affairs consultant or your health care provider. EPISIOTOMY CARE: After delivery, if you have an episiotomy (stitches), the following steps will ease discomfort and aid healing. * For the first 24 hours after delivery, place ice packs next to your episiotomy to help reduce swelling. * After the first 24 hour-period, sitz baths, either portable or in the tub, are suggested. A shower with a shower arm sprayed over the episiotomy may be comforting. * Ivy care should be done after each voiding and bowel movement. Squirt warm water from a plastic bottle over the perineum (region of the body between the anus and urinary opening) and pat dry. * Use Dermoplast to ease discomfort. Shake container. [place] directly over the episiotomy. * Place a Tucks on a clean sanitary pad next to your episiotomy. OVER THE COUNTER MEDICATION: * For discomfort or pain, you may use Acetaminophen (Tylenol), Ibuprofen (Advil), or Naproxen (Aleve) following the package directions. * For constipation you may use Colace following the package directions. SPECIAL CARE INSTRUCTIONS: When you are discharged from the hospital, it is important for you to follow the instructions listed below: * During the first week at home, you should be able to care for yourself and your baby. In addition, the usual light household activities are encouraged. * Limit your activities to the way you feel. Do not try to clean the house or move furniture. Be sensible. * If you actively engage in sports and have done so up until the time of your delivery, you may resume these activities as soon as you feel able. This may take up to one month or even longer. Use good judgment. * Continue to take your vitamins for at least six weeks after the of your baby. * Your diet need not be limited unless you were on a special diet before your delivery. Breast-feeding mothers need around 2500 calories per day and at least 64-80 ounces of fluid per day (8 to 10 glasses). * You should eat foods from the four major food groups. Crash diets or fad diets are to be avoided. Eating lean meats, fresh fruits and vegetables, low-fat dairy products, high fiber foods and a regular exercise program, will help you get back to your pre- weight without putting your health at risk. * Constipation is sometimes a problem after delivery. Take a mild laxative as needed. If breast feeding, Milk of Magnesia is acceptable to use. You may use a suppository or Fleets enema if no episiotomy. * A daily shower or tub bath is suggested. Be sure to thoroughly and gently dry the perineum. * A bloody vaginal discharge will usually continue until around four weeks post . A small amount of bleeding may continue for as long as six weeks. Vaginal discharge changes from the bright red bleeding after delivery to pink then brownish and finally yellowish-pink before becoming white and disappearing. * Bleeding may increase with activity. Your first period may come in 4-8 weeks. If you are breast feeding, your period may be delayed even longer. * [place] (sex) can begin whenever both you and your partner feel comfortable and do not have any form of genital infection. It is recommended that you wait until after your return appointment and discuss with your physician. If you have questions, please talk to your health care practitioner. A condom should be used to prevent infection and . * Foreplay, gentle intercourse and lubrication is very important the first several times to prevent pain. A water-based lubricant such as K-Y jelly or Astroglide may be used. * Tampons may be used six weeks after delivery. * Douching should be avoided for 6 weeks after delivery. * If you have RH negative blood and your baby is RH positive, you will receive RHOGAM by injection prior to discharge. The nurse will give you a card to keep with you that has the date and place that you received RHOGAM after delivery. * During your care, you had a Rubella screen done to check for the presence of rubella antibodies in your blood. If your test was negative, you will receive a Rubella vaccine prior to discharge. This vaccine may cause a fever, soreness at the injection site and flu-like symptoms. If these symptoms persist, notify your health care practitioner. is not advised for three months after a Rubella vaccine. There is a higher chance of having a baby with defects if conceived within three months of getting the vaccine. * If you were discharged 24 hours from delivery or before 48 hours: Visiting nurses will come to your home 48 hours after discharge to assess you and your baby. The visiting nurse will meet with you while you are in the hospital to arrange a time and get directions to your home. * Verbalizes understanding of car seat law as reviewed with patient nursing. * Car Seat hand-out given and reviewed with patient by nursing. * Shaken baby information reviewed with patient by nursing. Call you doctor if: * Heavy bleeding (saturating several pads an hour) or passing clots the size of your fist. * A fever >101 degrees F (38.3 degrees C) on two occasions four hours apart and/or chills. * Unusual pain in the pelvic or vaginal areas. * "Baby Blues" lasting longer than two weeks. If you have any questions or concerns, call your health care practitioner at . FOLLOW-UP VISIT: * Please call the office at to schedule 3 and 6 week examination. It is important you keep this appointment. * It is important for you to make arrangements for either yearly or twice yearly check-ups thereafter.
[2024-09-12 10:04] VITALS: BP 120/76; PULSE 81; TEMP 97.7; O2SAT 99
== END 2024-09-12 13:46 | disposition home or self-care (01) | DRG 807 ==
LOC: OPB 21:35 → 4S1 21:36 → 4E2 09-10 16:37